=== PATIENT | female | born 1940 | race Two or more races ===

== ENCOUNTER → 2018-12-21 | Outpatient (CLI) | payer MEDICARE, MEDICAID ==
[~2018-12-21] MED LIST: LIDOCAINE 1% (LOCAL ANESTH.) PF 5ml SDV ID ONE
--- NOTE | 2018-12-21 13:59 | NUR ---
PICC line placement Out-patient and daughter educated on need for PICC line placement per Dr Mendez's written order. All risks and benefits explained and all questions and concerns addressed prior to procedure. Noted past medical history and allergies with no contraindications. INR and Plt counts within acceptable range. 4 fr PICC line inserted via right basilic vein using [employer] US and Tip Location System. Sterile technique with maximum barrier precautions utilized. Blood return obtained from single lumen and each flushed easily with NS using proper technique. PICC secured with Stat-lock; biodisc and occlusive dressing applied. Stat portable chest x-ray obtained for PICC tip placement. *Baseline Arm Circumference 32 cm. *Internal Length 40 cm. *External Length 0 cm. *PICC lot #[id number]. Note: Written orde for PICC Line placement faxed over by [facility] with Dr. Mendez's order attached to paperwork.
--- NOTE | 2018-12-21 14:45 | NUR ---
PICC Line in Appropriate Position per CXR. Patient and daughter notified. Pt. discharged with family member via W/C with zero s/s of distress.
== END | disposition home or self-care (01) ==
LOC: XYW 12:19
PROVIDERS: ATTEND Internal Medicine
DX: Z45.2 Encounter for adjustment and management of vascular access device (principal); Z88.8 Allergy status to other drugs, medicaments and biological substances; Z98.890 Other specified postprocedural states; J90 Pleural effusion, not elsewhere classified; J98.11 Atelectasis
CPT/HCPCS: 36569; 71045; C1751; J7050

== ENCOUNTER 2021-06-27 14:19 | Inpatient (IN) | payer OTHER, MEDICAID ==
[~2021-06-27] VITALS: Ht 149.9 cm; Wt 76.8 kg
[2021-06-27 15:24] LABS: Basophils # (auto) 0 10 ^3/uL (0-0.2); Basophils % (auto) 0.2 % (0.0-2.0); Eosinophils # (auto) 0 10 ^3/uL (0-0.8); Eosinophils % (auto) 0.2 % (0.0-7.0); Hematocrit 34.7 % (36.0-46.0); Hemoglobin 11.4 g/dL (12.2-16.2); Lymphocytes # (auto) 0.7 10 ^3/uL (0.4-5.4); Lymphocytes % (auto) 4.9 % (10.0-50.0); Mean Corpuscular Hemoglobin 32.9 pg (28.0-32.0); Mean Corpuscular Hgb Conc. 32.9 g/dL (32.0-36.0); Mean Corpuscular Volume 99.9 fL (80.0-100.0); Monocytes # (auto) 1.1 10 ^3/uL (0-1.3); Monocytes % (auto) 7.8 % (0.0-12.0); Neutrophils # (auto) 12.3 10 ^3/uL (1.6-8.6); Neutrophils % (auto) 86.9 % (37.0-80.0); Red Blood Cells 3.47 10^6/uL (4.0-5.20); Red Cell Distribution Width 14.4 % (11.8-14.3); White Blood Cell 14.1 10^3/uL (4.4-10.8)
[2021-06-27 15:35] LABS: Albumin 3.5 g/dL (3.4-5.0); Calcium 9.2 mg/dL (8.5-10.1)
[2021-06-27 15:41] LABS: BUN/Creatinine Ratio 7.3; Bilirubin, Total 0.4 mg/dL (0.2-1.0); Total Protein 7.7 g/dL (6.4-8.2)
[2021-06-27 16:23] LABS: Urine Bacteria FEW /hpf (None Seen); Urine Blood TRACE /uL (Negative); Urine WBC 2 /hpf (0 - 5)
[2021-06-27] MEDS ORDERED: HYDROcodone-ACET 5/325MG TAB PO PRN (18:45)
[2021-06-27] MEDS ORDERED: DOCUSATE SOD 100 MG CAP PO PRN (18:45)
[2021-06-27] MEDS ORDERED: ACETAMINOPHEN 325 MG TAB PO PRN (18:45)
[2021-06-27] MEDS ORDERED: NITROGLYCERIN 0.4 MG SL TAB SL PRN (18:45)
[2021-06-27] MEDS ORDERED: MORPHINE SULFATE 4 MG/ML SYR/VIAL IV PRN (18:45)
[2021-06-27] MEDS ORDERED: ONDANSETRON HCL 4 MG/2 ML VIAL IV PRN (18:45)
[2021-06-27] MEDS ORDERED: MORPHINE SULFATE INJECTION 2 MG/ML SYRG IV PRN ×2 (18:45→19:00)
[2021-06-27 21:45] VITALS: BP 113/41
[2021-06-27 22:00] VITALS: BP 113/41
[2021-06-27] MEDS: ASCORBIC ACID 500 MG TAB PO SCH (22:16)
[2021-06-27] MEDS: LACTULOSE 20Gm/30ML SOLN PO SCH (23:38)
[2021-06-28 00:14] VITALS: BP 113/41
[2021-06-28] MEDS ORDERED: LEVO100T8 PO (00:30)
[2021-06-28] MEDS ORDERED: HYDR-4298 PO (00:30)
[2021-06-28] MEDS ORDERED: ATOR20TA50 PO (00:30)
[2021-06-28] MEDS ORDERED: CHOL20002 PO (00:30)
[2021-06-28 05:00] VITALS: BP 144/57
[2021-06-28] MEDS: LACTULOSE 20Gm/30ML SOLN PO SCH ×4 (05:47→23:36)
[2021-06-28 05:48] LABS: Basophils # (auto) 0.1 10 ^3/uL (0-0.2); Basophils % (auto) 0.7 % (0.0-2.0); Eosinophils # (auto) 0.2 10 ^3/uL (0-0.8); Eosinophils % (auto) 2.2 % (0.0-7.0); Hematocrit 30.1 % (36.0-46.0); Hemoglobin 10.2 g/dL (12.2-16.2); Lymphocytes # (auto) 1.2 10 ^3/uL (0.4-5.4); Lymphocytes % (auto) 12.3 % (10.0-50.0); Mean Corpuscular Hemoglobin 33.9 pg (28.0-32.0); Mean Corpuscular Hgb Conc. 33.9 g/dL (32.0-36.0); Mean Corpuscular Volume 100.3 fL (80.0-100.0); Monocytes # (auto) 1.3 10 ^3/uL (0-1.3); Monocytes % (auto) 12.9 % (0.0-12.0); Neutrophils # (auto) 7.2 10 ^3/uL (1.6-8.6); Neutrophils % (auto) 71.9 % (37.0-80.0); Nucleated Red Blood Cells % 0.3 %; Red Cell Distribution Width 14.3 % (11.8-14.3)
[2021-06-28 06:04] LABS: Chloride 103 mmol/L (98-107); Sodium 137 mmol/L (136-145)
[2021-06-28 06:08] LABS: Alanine Aminotransferase 51 U/L (13-56); Anion Gap 11 (5-15); BUN/Creatinine Ratio 7.1; Blood Urea Nitrogen 48 mg/dL (7-18); Calcium 8.7 mg/dL (8.5-10.1); Carbon Dioxide 23 mmol/L (21-32); GFR African American 8 mL/min; GFR Non-African American 6 mL/min; Glucose 79 mg/dL (74-106)
[2021-06-28 06:17] LABS: Alkaline Phosphatase 131 U/L (45-117); Aspartate Aminotransferase 32 U/L (15-37); Bilirubin, Total 0.4 mg/dL (0.2-1.0); Total Protein 6.4 g/dL (6.4-8.2)
[2021-06-28] MEDS ORDERED: SODIUM ZIRCONIUM CYCL 10 GM PAK PO ONE (08:00)
[2021-06-28] MEDS: ASCORBIC ACID 500 MG TAB PO SCH ×2 (08:34→21:38)
[2021-06-28 08:46] VITALS: BP 108/97
[2021-06-28] MEDS ORDERED: ZINC SULFATE 220mg CAP or TAB PO SCH (10:00)
[2021-06-28] MEDS ORDERED: MULTIPLE VITAMIN TAB PO SCH (10:00)
[2021-06-28] MEDS ORDERED: FUROSEMIDE 100 MG/10ML VIAL IV ONE (13:30)
[2021-06-28 13:34] VITALS: BP 108/131
[2021-06-28] MEDS: SUCRALFATE 1 GM/10 ML ORAL SUSP PO SCH ×3 (14:00→21:38)
[2021-06-28] MEDS ORDERED: guaiFENesin-DM 100/10mg/5ml SYR PO PRN (14:45)
[2021-06-28] MEDS ORDERED: levoFLOXacin 500MG 100 ML IV ONE (14:45)
[2021-06-28] MEDS: PANTOPRAZOLE 40 MG TAB PO SCH ×2 (16:04→21:38)
[2021-06-28 16:10] VITALS: BP 108/131
[2021-06-28 16:13] LABS: Calcium 8.1 mg/dL (8.5-10.1); Potassium 5.1 mmol/L (3.5-5.1)
[2021-06-28 16:17] LABS: BUN/Creatinine Ratio 7.3
[2021-06-28 16:51] VITALS: BP 134/61
[2021-06-28] MEDS: SEVELAMER 800 MG TAB PO SCH (17:07)
[2021-06-28] MEDS ORDERED: SEVE800T PO (17:17)
[2021-06-28] MEDS ORDERED: PANT40T PO (17:17)
[2021-06-28] MEDS ORDERED: LACT10SO3 PO (17:17)
[2021-06-28] MEDS ORDERED: SUCR1SUS10 PO (17:17)
[2021-06-28] MEDS ORDERED: DEXT1SYP9 PO (17:17)
[2021-06-28] MEDS ORDERED: LEVO250T69 PO (17:18)
[2021-06-28] MEDS: ALBUTEROL SULF 2.5 MG/0.5ML(0.5%) NEB SOLN NEB SCH (18:00)
[2021-06-29 05:00] VITALS: BP 109/46
[2021-06-29 06:00] VITALS: BP 129/78
[2021-06-29] MEDS: LACTULOSE 20Gm/30ML SOLN PO SCH (06:00)
[2021-06-29] MEDS: SUCRALFATE 1 GM/10 ML ORAL SUSP PO SCH (06:34)
[2021-06-29] MEDS ORDERED: SODIUM CHL 0.9% 1000 ML BAG XX ONE (07:00)
[2021-06-29 07:02] LABS: Basophils # (auto) 0.1 10 ^3/uL (0-0.2); Basophils % (auto) 1.5 % (0.0-2.0); Eosinophils # (auto) 0.2 10 ^3/uL (0-0.8); Eosinophils % (auto) 2.3 % (0.0-7.0); Hematocrit 30.2 % (36.0-46.0); Hemoglobin 10.2 g/dL (12.2-16.2); Lymphocytes # (auto) 1.1 10 ^3/uL (0.4-5.4); Lymphocytes % (auto) 11.8 % (10.0-50.0); Mean Corpuscular Hgb Conc. 33.7 g/dL (32.0-36.0); Mean Corpuscular Volume 101.1 fL (80.0-100.0); Monocytes # (auto) 1.5 10 ^3/uL (0-1.3); Monocytes % (auto) 16.5 % (0.0-12.0); Neutrophils # (auto) 6.1 10 ^3/uL (1.6-8.6); Neutrophils % (auto) 67.9 % (37.0-80.0); Red Blood Cells 2.98 10^6/uL (4.0-5.20); Red Cell Distribution Width 14.7 % (11.8-14.3)
[2021-06-29 07:54] LABS: BUN/Creatinine Ratio 8.5; Potassium 5.2 mmol/L (3.5-5.1)
[2021-06-29 07:55] LABS: Albumin 2.7 g/dL (3.4-5.0); Bilirubin, Total 0.3 mg/dL (0.2-1.0)
[2021-06-29] MEDS: SEVELAMER 800 MG TAB PO SCH (08:00)
[2021-06-29] MEDS: ALBUTEROL SULF 2.5 MG/0.5ML(0.5%) NEB SOLN NEB SCH (08:44)
[2021-06-29 09:00] VITALS: BP 132/65
[2021-06-29] MEDS ORDERED: EPOETIN ALFA-EPBX 10,000 UNIT/1ML VIAL SC ONE (21:00)
== END 2021-06-29 13:30 | disposition home or self-care (01) | DRG 177 ==
LOC: ER 14:19 → TELE 18:46 → TELE-CENTR 21:26 → TELE-EAST 06-29 04:55
PROVIDERS: ADMIT Internal Medicine; ATTEND Internal Medicine
PROC: 5A1D70Z Performance of Urinary Filtration, Intermittent, Less than 6 Hours Per Day (ICD-10-PCS; principal; 2021-06-29)
DX: U07.1 COVID-19 (principal); N18.6 End stage renal disease; I13.2 Hypertensive heart and chronic kidney disease with heart failure and with stage 5 chronic kidney disease, or end stage renal disease; I50.22 Chronic systolic (congestive) heart failure; D63.1 Anemia in chronic kidney disease; E11.22 Type 2 diabetes mellitus with diabetic chronic kidney disease; K21.9 Gastro-esophageal reflux disease without esophagitis; D72.829 Elevated white blood cell count, unspecified; E87.5 Hyperkalemia; R09.02 Hypoxemia; Z96.659 Presence of unspecified artificial knee joint; K59.00 Constipation, unspecified; E03.9 Hypothyroidism, unspecified; E78.5 Hyperlipidemia, unspecified; J20.9 Acute bronchitis, unspecified; Z78.9 Other specified health status; Z99.2 Dependence on renal dialysis; Z88.8 Allergy status to other drugs, medicaments and biological substances; Z90.710 Acquired absence of both cervix and uterus
CPT/HCPCS: 36415; 71045; 74176; 80048; 80053; 81001; 83605; 83690; 83880; 84484; 85025; 85379; 87081; 87426; 94640; 96365; 96375; G0378; J1956; J2405

== ENCOUNTER 2021-07-27 13:25 | Emergency (ER) | payer OTHER, MEDICAID ==
[~2021-07-27] VITALS: Ht 147.3 cm; Wt 74.8 kg
[~2021-07-27 13:25] MED LIST changes: +ATOR20TA50 PO; +CHOL20002 PO; +DEXT1SYP9 PO; +HYDR-4298 PO; +LACT10SO3 PO; +LEVO100T8 PO; +LEVO250T69 PO; -LIDOCAINE 1% (LOCAL ANESTH.) PF 5ml SDV ID ONE; +PANT40T PO; +SEVE800T PO; +SUCR1SUS10 PO
[2021-07-27 16:58] VITALS: BP 169/61
[2021-07-27] MEDS ORDERED: DOXY-286 PO (18:18)
[2021-07-27] MEDS ORDERED: BENZ100C19 PO (18:18)
[2021-07-27] MEDS ORDERED: ALBU108A5 IN (18:18)
== END 2021-07-27 18:28 | disposition home or self-care (01) ==
LOC: ER 13:25
DX: J06.9 Acute upper respiratory infection, unspecified (principal); R51.9 Headache, unspecified; E11.22 Type 2 diabetes mellitus with diabetic chronic kidney disease; N18.6 End stage renal disease; Z90.710 Acquired absence of both cervix and uterus; Z20.822 Contact with and (suspected) exposure to COVID-19
CPT/HCPCS: 36415; 71045; 87426; 87804

== ENCOUNTER 2021-09-02 14:58 | Inpatient (IN) | payer OTHER, MEDICAID ==
[~2021-09-02] VITALS: Ht 147.3 cm; Wt 76.4 kg
[~2021-09-02 14:58] MED LIST changes: +ALBU108A5 IN; +BENZ100C19 PO; +DOXY-286 PO
[2021-09-02 17:15] LABS: Basophils # (auto) 0.1 10 ^3/uL (0-0.2); Basophils % (auto) 0.6 % (0.0-2.0); Eosinophils # (auto) 0.1 10 ^3/uL (0-0.8); Eosinophils % (auto) 0.7 % (0.0-7.0); Hematocrit 28.2 % (36.0-46.0); Hemoglobin 9.4 g/dL (12.2-16.2); Lymphocytes # (auto) 0.7 10 ^3/uL (0.4-5.4); Mean Corpuscular Hemoglobin 33.7 pg (28.0-32.0); Mean Corpuscular Hgb Conc. 33.3 g/dL (32.0-36.0); Mean Corpuscular Volume 101.1 fL (80.0-100.0); Monocytes # (auto) 0.8 10 ^3/uL (0-1.3); Monocytes % (auto) 5.5 % (0.0-12.0); Neutrophils % (auto) 88.2 % (37.0-80.0); Nucleated Red Blood Cells % 0.2 %; Red Blood Cells 2.79 10^6/uL (4.0-5.20); Red Cell Distribution Width 16.8 % (11.8-14.3); White Blood Cell 14.8 10^3/uL (4.4-10.8)
[2021-09-02 17:36] LABS: Albumin 3.1 g/dL (3.4-5.0); Calcium 8.5 mg/dL (8.5-10.1); Potassium 3.6 mmol/L (3.5-5.1)
[2021-09-02 17:43] LABS: BUN/Creatinine Ratio 5.6; Bilirubin, Total 0.3 mg/dL (0.2-1.0); Total Protein 6.5 g/dL (6.4-8.2)
[2021-09-02] MEDS ORDERED: DEXTROSE (50%) 50ML SYRG IV PRN (22:15)
[2021-09-02] MEDS ORDERED: ACETAMINOPHEN 325 MG TAB PO PRN (22:15)
[2021-09-02] MEDS ORDERED: DOCUSATE SOD 100 MG CAP PO PRN (22:15)
[2021-09-02] MEDS ORDERED: ONDANSETRON HCL 4 MG/2 ML VIAL IV PRN (22:15)
[2021-09-02] MEDS ORDERED: MORPHINE SULFATE INJECTION 2 MG/ML SYRG IV PRN (22:45)
[2021-09-02] MEDS ORDERED: NITROGLYCERIN 0.4 MG SL TAB SL PRN (22:45)
[2021-09-02] MEDS: AZITHROMYCIN 500MG/ 250ML 250 ML IV SCH (23:00)
[2021-09-03] MEDS: cefTRIAXone 1GM/50ML D5W 50 ML IV SCH ×2 (01:15→22:50)
[2021-09-03] MEDS: SODIUM CHLOR 0.9% PF (SALINE LOCK) 10ML VIAL/SYR IV SCH ×3 (06:59→22:19)
[2021-09-03] MEDS: InsuLIN REG 1unit/0.01ml Soln (100units/ml) SC SCH ×4 (07:00→22:59)
[2021-09-03] MEDS: ACCU-CHEK COMFORT CURVE STRIP VI SCH ×4 (07:10→22:19)
[2021-09-03] MEDS: SEVELAMER 800 MG TAB PO SCH ×3 (08:52→18:16)
[2021-09-03] MEDS: FAMOTIDINE (10MG/ML) 2ML VL IV SCH (08:52)
[2021-09-03] MEDS: B-COMPLEX W/ C & FOLIC ACID(NEPHROVITE TAB) PO SCH (08:52)
[2021-09-03 09:11] VITALS: BP 155/74
[2021-09-03] MEDS ORDERED: HEPARIN SODIUM (PORCINE) 5000 UNITS/ML 1ML VIAL SC SCH (10:00)
[2021-09-03 10:01] LABS: Potassium 3.7 mmol/L (3.5-5.1)
[2021-09-03 10:02] LABS: Albumin 3.7 g/dL (3.4-5.0)
[2021-09-03 10:05] LABS: BUN/Creatinine Ratio 5.1; Bilirubin, Total 0.4 mg/dL (0.2-1.0); Calcium 8.8 mg/dL (8.5-10.1); Total Protein 7.7 g/dL (6.4-8.2)
[2021-09-03 10:08] LABS: Basophils # (auto) 0.1 10 ^3/uL (0-0.2); Basophils % (auto) 0.9 % (0.0-2.0); Eosinophils # (auto) 0.1 10 ^3/uL (0-0.8); Eosinophils % (auto) 1.3 % (0.0-7.0); Hematocrit 31.1 % (36.0-46.0); Hemoglobin 10.4 g/dL (12.2-16.2); Lymphocytes % (auto) 8.7 % (10.0-50.0); Mean Corpuscular Hemoglobin 33.6 pg (28.0-32.0); Mean Corpuscular Hgb Conc. 33.5 g/dL (32.0-36.0); Mean Corpuscular Volume 100.5 fL (80.0-100.0); Monocytes # (auto) 0.9 10 ^3/uL (0-1.3); Monocytes % (auto) 7.9 % (0.0-12.0); Neutrophils # (auto) 9.1 10 ^3/uL (1.6-8.6); Neutrophils % (auto) 81.2 % (37.0-80.0); Nucleated Red Blood Cells % 0.1 %; Red Cell Distribution Width 16.5 % (11.8-14.3); White Blood Cell 11.2 10^3/uL (4.4-10.8)
[2021-09-03] MEDS: HYDROcodone-ACET 5/325MG TAB PO PRN (12:24)
[2021-09-03 14:39] VITALS: BP 158/50
[2021-09-03 17:49] VITALS: BP 141/55
[2021-09-03] MEDS: MUPIROCIN 2% OINT 15gm or 22gm EACHNOSTRI SCH ×2 (18:00→22:18)
[2021-09-03] MEDS ORDERED: LORazepam 2MG/ML-1ML VIAL IV PRN ×2 (19:15→21:15)
[2021-09-03 19:17] LABS: Urine Bacteria NONE SEEN /hpf (None Seen); Urine Blood Negative /uL (Negative); Urine Specific Gravity 1.006 (1.001-1.035); Urine WBC 1 /hpf (0 - 5)
[2021-09-03] MEDS ORDERED: RANO500T PO (20:58)
[2021-09-03] MEDS ORDERED: SODI650T PO (20:58)
[2021-09-03] MEDS ORDERED: APIX2.5T PO (20:58)
[2021-09-03] MEDS ORDERED: MULT-1018 PO (20:58)
[2021-09-03] MEDS ORDERED: CINA30TA2 PO (20:58)
[2021-09-03] MEDS ORDERED: INSLANTI SC (20:58)
[2021-09-03] MEDS ORDERED: ONDA-144 PO (20:58)
[2021-09-03] MEDS ORDERED: ACET1CAP14 PO (20:58)
[2021-09-03] MEDS ORDERED: METO-158 PO (20:58)
[2021-09-03] MEDS ORDERED: INSRTEST IV (20:58)
[2021-09-03 22:03] VITALS: BP 117/54
[2021-09-03] MEDS: ATORVASTATIN 20 MG TAB PO SCH (22:19)
[2021-09-03] MEDS: HEPARIN SODIUM (PORCINE) 5000 UNITS/ML 1ML VIAL SC SCH (23:07)
[2021-09-03] MEDS: AZITHROMYCIN 500MG/ 250ML 250 ML IV SCH (23:50)
[2021-09-04 05:18] VITALS: BP 108/68
[2021-09-04] MEDS: ACCU-CHEK COMFORT CURVE STRIP VI SCH ×4 (06:08→22:00)
[2021-09-04] MEDS: InsuLIN REG 1unit/0.01ml Soln (100units/ml) SC SCH ×4 (06:08→23:08)
[2021-09-04] MEDS: SODIUM CHLOR 0.9% PF (SALINE LOCK) 10ML VIAL/SYR IV SCH ×3 (06:08→22:40)
[2021-09-04 06:57] LABS: Calcium 7.4 mg/dL (8.5-10.1); Potassium 4.4 mmol/L (3.5-5.1)
[2021-09-04 07:00] LABS: BUN/Creatinine Ratio 6.9
[2021-09-04 08:20] VITALS: BP 134/61
[2021-09-04 08:40] LABS: Basophils # (auto) 0.1 10 ^3/uL (0-0.2); Basophils % (auto) 0.5 % (0.0-2.0); Hemoglobin 9.5 g/dL (12.2-16.2); Lymphocytes # (auto) 1.2 10 ^3/uL (0.4-5.4); Lymphocytes % (auto) 9.5 % (10.0-50.0); Monocytes # (auto) 1.2 10 ^3/uL (0-1.3); White Blood Cell 12.7 10^3/uL (4.4-10.8)
[2021-09-04 08:41] LABS: Eosinophils # (auto) 0.3 10 ^3/uL (0-0.8); Eosinophils % (auto) 2.1 % (0.0-7.0); Hematocrit 29.6 % (36.0-46.0); Mean Corpuscular Hemoglobin 32.7 pg (28.0-32.0); Mean Corpuscular Hgb Conc. 32.1 g/dL (32.0-36.0); Mean Corpuscular Volume 102.1 fL (80.0-100.0); Monocytes % (auto) 9.8 % (0.0-12.0); Neutrophils # (auto) 9.9 10 ^3/uL (1.6-8.6); Neutrophils % (auto) 78.1 % (37.0-80.0); Red Cell Distribution Width 16.6 % (11.8-14.3)
[2021-09-04] MEDS: ASPirin-EC 81 mg tab PO SCH (09:26)
[2021-09-04] MEDS: B-COMPLEX W/ C & FOLIC ACID(NEPHROVITE TAB) PO SCH (09:26)
[2021-09-04] MEDS: SEVELAMER 800 MG TAB PO SCH ×3 (09:26→17:47)
[2021-09-04] MEDS: MUPIROCIN 2% OINT 15gm or 22gm EACHNOSTRI SCH ×2 (09:27→22:40)
[2021-09-04] MEDS: FAMOTIDINE (10MG/ML) 2ML VL IV SCH (09:27)
[2021-09-04] MEDS: HEPARIN SODIUM (PORCINE) 5000 UNITS/ML 1ML VIAL SC SCH ×2 (09:31→22:42)
[2021-09-04 13:00] VITALS: BP 130/69
[2021-09-04] MEDS ORDERED: VANCOMYCIN 1GM/250ML 250 ML IV ONE (13:45)
[2021-09-04] MEDS ORDERED: VANCOMYCIN PER PHARMACY 0 MG IV SCH (13:45)
[2021-09-04] MEDS: PIPERACILLIN-TAZOB 2.25GM 50 ML IV SCH ×2 (15:59→23:10)
[2021-09-04 16:39] VITALS: BP 121/47
[2021-09-04 22:05] VITALS: BP 156/69
[2021-09-04] MEDS: ATORVASTATIN 20 MG TAB PO SCH (22:41)
[2021-09-05] MEDS: HYDROcodone-ACET 5/325MG TAB PO PRN ×2 (02:41→12:00)
[2021-09-05 05:26] VITALS: BP 108/59
[2021-09-05] MEDS: SODIUM CHLOR 0.9% PF (SALINE LOCK) 10ML VIAL/SYR IV SCH ×3 (05:38→22:32)
[2021-09-05] MEDS: InsuLIN REG 1unit/0.01ml Soln (100units/ml) SC SCH ×4 (07:00→22:34)
[2021-09-05] MEDS: PIPERACILLIN-TAZOB 2.25GM 50 ML IV SCH ×2 (07:04→13:39)
[2021-09-05] MEDS: ACCU-CHEK COMFORT CURVE STRIP VI SCH ×4 (07:04→22:00)
[2021-09-05 07:46] LABS: Eosinophils # (auto) 0.2 10 ^3/uL (0-0.8)
[2021-09-05 07:52] LABS: Basophils # (auto) 0 10 ^3/uL (0-0.2); Basophils % (auto) 0.3 % (0.0-2.0); Eosinophils % (auto) 2.2 % (0.0-7.0); Hematocrit 27.9 % (36.0-46.0); Hemoglobin 9.3 g/dL (12.2-16.2); Lymphocytes # (auto) 0.8 10 ^3/uL (0.4-5.4); Lymphocytes % (auto) 7.8 % (10.0-50.0); Mean Corpuscular Hemoglobin 33.6 pg (28.0-32.0); Mean Corpuscular Hgb Conc. 33.3 g/dL (32.0-36.0); Mean Corpuscular Volume 100.9 fL (80.0-100.0); Monocytes # (auto) 0.8 10 ^3/uL (0-1.3); Monocytes % (auto) 7.9 % (0.0-12.0); Neutrophils # (auto) 8.6 10 ^3/uL (1.6-8.6); Neutrophils % (auto) 81.8 % (37.0-80.0); Red Blood Cells 2.76 10^6/uL (4.0-5.20); Red Cell Distribution Width 16.5 % (11.8-14.3); White Blood Cell 10.5 10^3/uL (4.4-10.8)
[2021-09-05 08:11] LABS: Potassium 4.6 mmol/L (3.5-5.1)
[2021-09-05 08:32] LABS: BUN/Creatinine Ratio 7.5; Calcium 7.9 mg/dL (8.5-10.1)
[2021-09-05 09:00] VITALS: BP 122/62
[2021-09-05] MEDS: B-COMPLEX W/ C & FOLIC ACID(NEPHROVITE TAB) PO SCH (09:23)
[2021-09-05] MEDS: ASPirin-EC 81 mg tab PO SCH (09:23)
[2021-09-05] MEDS: SEVELAMER 800 MG TAB PO SCH ×3 (09:23→17:32)
[2021-09-05] MEDS: HEPARIN SODIUM (PORCINE) 5000 UNITS/ML 1ML VIAL SC SCH ×2 (09:28→22:32)
[2021-09-05] MEDS: MUPIROCIN 2% OINT 15gm or 22gm EACHNOSTRI SCH ×2 (09:31→22:30)
[2021-09-05 13:00] VITALS: BP_SYST 127; BP_SYST 170; BP_DIAS 57; BP_DIAS 77
[2021-09-05 17:00] VITALS: BP 133/39
[2021-09-05] MEDS ORDERED: VANCOMYCIN 1GM/250ML 250 ML IV ONE (18:00)
[2021-09-05 22:00] VITALS: BP 105/45
[2021-09-05] MEDS: ATORVASTATIN 20 MG TAB PO SCH (22:32)
[2021-09-06] MEDS: PIPERACILLIN-TAZOB 2.25GM 50 ML IV SCH ×2 (00:20→06:53)
[2021-09-06 05:00] VITALS: BP 112/62
[2021-09-06 06:03] LABS: Basophils # (auto) 0 10 ^3/uL (0-0.2); Eosinophils # (auto) 0.2 10 ^3/uL (0-0.8); Hemoglobin 9.4 g/dL (12.2-16.2); Lymphocytes # (auto) 0.6 10 ^3/uL (0.4-5.4); Neutrophils # (auto) 8.5 10 ^3/uL (1.6-8.6)
[2021-09-06 06:08] LABS: Basophils % (auto) 0.1 % (0.0-2.0); Eosinophils % (auto) 2.4 % (0.0-7.0); Lymphocytes % (auto) 5.7 % (10.0-50.0); Mean Corpuscular Hemoglobin 34.2 pg (28.0-32.0); Mean Corpuscular Hgb Conc. 33.6 g/dL (32.0-36.0); Mean Corpuscular Volume 101.8 fL (80.0-100.0); Monocytes # (auto) 1.1 10 ^3/uL (0-1.3); Monocytes % (auto) 10.6 % (0.0-12.0); Neutrophils % (auto) 81.2 % (37.0-80.0); Nucleated Red Blood Cells % 0.1 %; Red Blood Cells 2.75 10^6/uL (4.0-5.20); Red Cell Distribution Width 16.2 % (11.8-14.3); White Blood Cell 10.5 10^3/uL (4.4-10.8)
[2021-09-06 06:24] LABS: BUN/Creatinine Ratio 7.6; Potassium 5.4 mmol/L (3.5-5.1)
[2021-09-06] MEDS: ACCU-CHEK COMFORT CURVE STRIP VI SCH ×4 (06:52→21:39)
[2021-09-06] MEDS: SODIUM CHLOR 0.9% PF (SALINE LOCK) 10ML VIAL/SYR IV SCH ×3 (06:52→21:38)
[2021-09-06] MEDS: InsuLIN REG 1unit/0.01ml Soln (100units/ml) SC SCH ×4 (06:54→21:36)
[2021-09-06] MEDS: HYDROcodone-ACET 5/325MG TAB PO PRN (07:20)
[2021-09-06] MEDS: HALOPERIDOL LACTATE 5 MG/ML INJ VIAL IM PRN (07:22)
[2021-09-06 08:00] VITALS: BP 131/67
[2021-09-06] MEDS: SEVELAMER 800 MG TAB PO SCH ×3 (08:00→18:00)
[2021-09-06] MEDS: MUPIROCIN 2% OINT 15gm or 22gm EACHNOSTRI SCH ×2 (09:32→21:38)
[2021-09-06] MEDS: FAMOTIDINE (10MG/ML) 2ML VL IV SCH (09:33)
[2021-09-06] MEDS: HEPARIN SODIUM (PORCINE) 5000 UNITS/ML 1ML VIAL SC SCH ×2 (09:47→22:00)
[2021-09-06] MEDS: B-COMPLEX W/ C & FOLIC ACID(NEPHROVITE TAB) PO SCH (10:00)
[2021-09-06] MEDS: ASPirin-EC 81 mg tab PO SCH (10:00)
[2021-09-06] MEDS ORDERED: SODIUM CHL 0.9% 1000 ML BAG XX ONE (11:00)
[2021-09-06 12:00] VITALS: BP 135/66
[2021-09-06 16:00] VITALS: BP 132/78
[2021-09-06 21:00] VITALS: BP 134/82
[2021-09-06] MEDS ORDERED: EPOETIN ALFA-EPBX 10,000 UNIT/1ML VIAL SC ONE (21:00)
[2021-09-06] MEDS: ATORVASTATIN 20 MG TAB PO SCH (21:39)
[2021-09-06 22:00] VITALS: BP 151/64
[2021-09-06 23:20] LABS: INR 1.04 (0.9-1.15)
[2021-09-07] MEDS: HALOPERIDOL LACTATE 5 MG/ML INJ VIAL IM PRN ×2 (02:49→22:30)
[2021-09-07 05:00] VITALS: BP 151/64
[2021-09-07] MEDS: InsuLIN REG 1unit/0.01ml Soln (100units/ml) SC SCH ×4 (05:34→22:00)
[2021-09-07] MEDS: ACCU-CHEK COMFORT CURVE STRIP VI SCH ×4 (05:34→22:00)
[2021-09-07] MEDS: SODIUM CHLOR 0.9% PF (SALINE LOCK) 10ML VIAL/SYR IV SCH ×3 (05:34→22:00)
[2021-09-07] MEDS: SEVELAMER 800 MG TAB PO SCH ×3 (07:49→17:08)
[2021-09-07 08:30] VITALS: BP 119/55
[2021-09-07] MEDS: HEPARIN SODIUM (PORCINE) 5000 UNITS/ML 1ML VIAL SC SCH ×3 (10:00→22:00)
[2021-09-07] MEDS: MUPIROCIN 2% OINT 15gm or 22gm EACHNOSTRI SCH ×2 (10:22→22:00)
[2021-09-07] MEDS: ASPirin-EC 81 mg tab PO SCH (10:23)
[2021-09-07] MEDS: B-COMPLEX W/ C & FOLIC ACID(NEPHROVITE TAB) PO SCH (10:23)
[2021-09-07] MEDS: HYDROcodone-ACET 5/325MG TAB PO PRN ×2 (10:26→17:29)
[2021-09-07 13:00] VITALS: BP 143/71
[2021-09-07] MEDS ORDERED: LEVOTHYROXINE SODIUM 100 MCG/5 ML INJ IV ONE (16:30)
[2021-09-07 16:47] VITALS: BP 139/89
[2021-09-07] MEDS: AMPICILLIN SOD 2GM INJ 2 GM in SODIUM CHL 0.9% 100 ML IV SCH (17:10)
[2021-09-07] MEDS: METOPROLOL TARTRATE 25 MG TAB PO SCH ×3 (17:26→23:00)
[2021-09-07] MEDS: ACYCLOVIR SOD 50MG/ML 250 MG in D5W 5% 100 ML IV SCH (17:26)
[2021-09-07 19:49] LABS: Basophils # (auto) 0 10 ^3/uL (0-0.2); Basophils % (auto) 0.4 % (0.0-2.0); Eosinophils # (auto) 0.3 10 ^3/uL (0-0.8); Eosinophils % (auto) 3.9 % (0.0-7.0); Hematocrit 24.7 % (36.0-46.0); Hemoglobin 8.3 g/dL (12.2-16.2); Lymphocytes % (auto) 11.2 % (10.0-50.0); Mean Corpuscular Hemoglobin 33.8 pg (28.0-32.0); Mean Corpuscular Hgb Conc. 33.4 g/dL (32.0-36.0); Mean Corpuscular Volume 101.1 fL (80.0-100.0); Monocytes # (auto) 1.1 10 ^3/uL (0-1.3); Monocytes % (auto) 12.5 % (0.0-12.0); Neutrophils # (auto) 6.3 10 ^3/uL (1.6-8.6); Red Blood Cells 2.44 10^6/uL (4.0-5.20); Red Cell Distribution Width 16.1 % (11.8-14.3); White Blood Cell 8.8 10^3/uL (4.4-10.8)
[2021-09-07 20:00] VITALS: BP 152/79
[2021-09-07 20:04] LABS: BUN/Creatinine Ratio 4.7; Calcium 8.2 mg/dL (8.5-10.1); Potassium 4.6 mmol/L (3.5-5.1)
[2021-09-07 20:50] VITALS: BP 152/79
[2021-09-07] MEDS: CEFTRIAXONE SODIUM 2 GM in D5W 5% 50 ML IV SCH (21:00)
[2021-09-07] MEDS ORDERED: cefTRIAXone 1GM/50ML D5W 50 ML IV ONE (21:34)
[2021-09-07] MEDS: ATORVASTATIN 20 MG TAB PO SCH (22:00)
[2021-09-08] VITALS: BP 133/62
[2021-09-08] MEDS ORDERED: AMPICILLIN SOD 1 GM VL ONE (02:31)
[2021-09-08] MEDS: AMPICILLIN SOD 2GM INJ 2 GM in SODIUM CHL 0.9% 100 ML IV SCH ×4 (02:46→18:22)
[2021-09-08 05:01] VITALS: BP 132/72
[2021-09-08] MEDS: SODIUM CHLOR 0.9% PF (SALINE LOCK) 10ML VIAL/SYR IV SCH ×3 (06:10→22:00)
[2021-09-08] MEDS ORDERED: SODIUM CHL 0.9% 1000 ML BAG XX ONE (06:45)
[2021-09-08] MEDS: LEVOTHYROXINE SODIUM 112 MCG TAB PO SCH (07:00)
[2021-09-08] MEDS: InsuLIN REG 1unit/0.01ml Soln (100units/ml) SC SCH ×4 (07:00→22:00)
[2021-09-08] MEDS: ACCU-CHEK COMFORT CURVE STRIP VI SCH ×4 (07:00→22:00)
[2021-09-08 07:23] LABS: Basophils # (auto) 0.1 10 ^3/uL (0-0.2); Basophils % (auto) 0.6 % (0.0-2.0); Eosinophils # (auto) 0.3 10 ^3/uL (0-0.8); Eosinophils % (auto) 3.7 % (0.0-7.0); Hematocrit 28.3 % (36.0-46.0); Hemoglobin 9.4 g/dL (12.2-16.2); Lymphocytes # (auto) 1.1 10 ^3/uL (0.4-5.4); Lymphocytes % (auto) 11.8 % (10.0-50.0); Mean Corpuscular Hemoglobin 33.3 pg (28.0-32.0); Mean Corpuscular Hgb Conc. 33.2 g/dL (32.0-36.0); Mean Corpuscular Volume 100.4 fL (80.0-100.0); Monocytes # (auto) 1.1 10 ^3/uL (0-1.3); Monocytes % (auto) 12.3 % (0.0-12.0); Neutrophils # (auto) 6.6 10 ^3/uL (1.6-8.6); Neutrophils % (auto) 71.6 % (37.0-80.0); Nucleated Red Blood Cells % 0.1 %; Red Blood Cells 2.82 10^6/uL (4.0-5.20); Red Cell Distribution Width 16.1 % (11.8-14.3); White Blood Cell 9.3 10^3/uL (4.4-10.8)
[2021-09-08] MEDS: SEVELAMER 800 MG TAB PO SCH ×3 (08:16→18:22)
[2021-09-08 09:00] VITALS: BP 116/59
[2021-09-08] MEDS: HEPARIN SODIUM (PORCINE) 5000 UNITS/ML 1ML VIAL SC SCH ×2 (10:00→22:00)
[2021-09-08] MEDS ORDERED: LIDOCAINE 2%HCL (LOCAL ANESTH.) INJ 20ML MDV ONE (10:38)
[2021-09-08] MEDS: MUPIROCIN 2% OINT 15gm or 22gm EACHNOSTRI SCH ×2 (10:38→22:00)
[2021-09-08] MEDS: B-COMPLEX W/ C & FOLIC ACID(NEPHROVITE TAB) PO SCH (10:39)
[2021-09-08] MEDS: ASPirin-EC 81 mg tab PO SCH (10:39)
[2021-09-08] MEDS: FAMOTIDINE (10MG/ML) 2ML VL IV SCH (10:39)
[2021-09-08] MEDS: CINACALCET HYDROCHLORIDE 30 MG TAB PO SCH (12:08)
[2021-09-08] MEDS: CEFTRIAXONE SODIUM 2 GM in D5W 5% 50 ML IV SCH ×2 (12:08→21:00)
[2021-09-08 12:43] VITALS: BP 167/75
[2021-09-08 13:23] LABS: Protein, CSF 84.1 mg/dL (15-45)
[2021-09-08 14:36] LABS: CSF White Blood Cells 20 CUMM (0-5)
[2021-09-08 15:44] LABS: BUN/Creatinine Ratio 4.5; Calcium 8.1 mg/dL (8.5-10.1)
[2021-09-08 16:49] VITALS: BP 139/89
[2021-09-08] MEDS: HYDROcodone-ACET 5/325MG TAB PO PRN (16:50)
[2021-09-08] MEDS ORDERED: VANCOMYCIN 1GM/250ML 250 ML IV ONE (17:00)
[2021-09-08] MEDS: ACYCLOVIR SOD 50MG/ML 250 MG in D5W 5% 100 ML IV SCH (20:00)
[2021-09-08 22:00] VITALS: BP 151/86
[2021-09-08] MEDS: METOPROLOL TARTRATE 25 MG TAB PO SCH (22:00)
[2021-09-08] MEDS: ATORVASTATIN 20 MG TAB PO SCH (22:00)
[2021-09-09] MEDS: AMPICILLIN SOD 2GM INJ 2 GM in SODIUM CHL 0.9% 100 ML IV SCH ×3 (00:23→12:00)
[2021-09-09] MEDS: HYDROcodone-ACET 5/325MG TAB PO PRN ×3 (01:12→07:33)
[2021-09-09 05:00] VITALS: BP 143/68
[2021-09-09] MEDS: SODIUM CHLOR 0.9% PF (SALINE LOCK) 10ML VIAL/SYR IV SCH ×2 (06:00→14:00)
[2021-09-09] MEDS: InsuLIN REG 1unit/0.01ml Soln (100units/ml) SC SCH ×3 (07:00→17:00)
[2021-09-09] MEDS: ACCU-CHEK COMFORT CURVE STRIP VI SCH ×3 (07:00→17:00)
[2021-09-09] MEDS: LEVOTHYROXINE SODIUM 112 MCG TAB PO SCH (07:00)
[2021-09-09 07:22] LABS: BUN/Creatinine Ratio 4.1; Calcium 8.2 mg/dL (8.5-10.1); Potassium 4.7 mmol/L (3.5-5.1)
[2021-09-09 07:34] LABS: Basophils # (auto) 0.1 10 ^3/uL (0-0.2); Basophils % (auto) 0.7 % (0.0-2.0); Eosinophils # (auto) 0.3 10 ^3/uL (0-0.8); Eosinophils % (auto) 2.6 % (0.0-7.0); Hemoglobin 9.5 g/dL (12.2-16.2); Mean Corpuscular Hemoglobin 33.9 pg (28.0-32.0); Mean Corpuscular Hgb Conc. 33.7 g/dL (32.0-36.0); Mean Corpuscular Volume 100.4 fL (80.0-100.0); Monocytes # (auto) 0.9 10 ^3/uL (0-1.3); Monocytes % (auto) 9.3 % (0.0-12.0); Neutrophils # (auto) 7.6 10 ^3/uL (1.6-8.6); Neutrophils % (auto) 77.4 % (37.0-80.0); Red Blood Cells 2.79 10^6/uL (4.0-5.20); Red Cell Distribution Width 15.8 % (11.8-14.3); White Blood Cell 9.8 10^3/uL (4.4-10.8)
[2021-09-09] MEDS: SEVELAMER 800 MG TAB PO SCH ×2 (08:00→12:00)
[2021-09-09 08:24] VITALS: BP 156/65
[2021-09-09] MEDS: CEFTRIAXONE SODIUM 2 GM in D5W 5% 50 ML IV SCH (09:00)
[2021-09-09] MEDS: B-COMPLEX W/ C & FOLIC ACID(NEPHROVITE TAB) PO SCH (10:00)
[2021-09-09] MEDS: ASPirin-EC 81 mg tab PO SCH (10:00)
[2021-09-09] MEDS: METOPROLOL TARTRATE 25 MG TAB PO SCH (10:00)
[2021-09-09] MEDS: MUPIROCIN 2% OINT 15gm or 22gm EACHNOSTRI SCH (10:00)
[2021-09-09] MEDS: HEPARIN SODIUM (PORCINE) 5000 UNITS/ML 1ML VIAL SC SCH (10:00)
[2021-09-09] MEDS: CINACALCET HYDROCHLORIDE 30 MG TAB PO SCH (10:00)
[2021-09-09] MEDS ORDERED: HALOPERIDOL LACTATE 5 MG/ML INJ VIAL IM PRN (10:15)
[2021-09-09] MEDS ORDERED: SODIUM CHL 0.9% 1000 ML BAG XX ONE (12:15)
[2021-09-09 13:00] VITALS: BP 140/49
[2021-09-09] MEDS ORDERED: MET25T PO (14:03)
[2021-09-09] MEDS ORDERED: KEP500T PO (14:03)
[2021-09-09 15:56] VITALS: BP 140/49
[2021-09-09] MEDS ORDERED: EPOETIN ALFA-EPBX 10,000 UNIT/1ML VIAL SC ONE (21:00)
== END 2021-09-09 18:02 | disposition home health service (06) | DRG 871 ==
LOC: EDBD 14:58 → ER 14:58 → TELE 22:43 → TELE-WESTW 09-03 05:52
PROVIDERS: ADMIT Nurse Practitioner Family; ATTEND Internal Medicine
PROC: 5A1D70Z Performance of Urinary Filtration, Intermittent, Less than 6 Hours Per Day (ICD-10-PCS; 2021-09-06)
PROC: 5A1D70Z Performance of Urinary Filtration, Intermittent, Less than 6 Hours Per Day (ICD-10-PCS; principal; 2021-09-08)
PROC: 009U3ZX Drainage of Spinal Canal, Percutaneous Approach, Diagnostic (ICD-10-PCS; 2021-09-08)
PROC: B01B1ZZ Fluoroscopy of Spinal Cord using Low Osmolar Contrast (ICD-10-PCS; 2021-09-08)
PROC: 5A1D70Z Performance of Urinary Filtration, Intermittent, Less than 6 Hours Per Day (ICD-10-PCS; 2021-09-09)
DX: A41.9 Sepsis, unspecified organism (principal); J18.9 Pneumonia, unspecified organism; N18.6 End stage renal disease; G93.41 Metabolic encephalopathy; I13.2 Hypertensive heart and chronic kidney disease with heart failure and with stage 5 chronic kidney disease, or end stage renal disease; J98.11 Atelectasis; D63.8 Anemia in other chronic diseases classified elsewhere; E11.65 Type 2 diabetes mellitus with hyperglycemia; E03.9 Hypothyroidism, unspecified; E11.22 Type 2 diabetes mellitus with diabetic chronic kidney disease; E66.01 Morbid (severe) obesity due to excess calories; E78.5 Hyperlipidemia, unspecified; G40.409 Other generalized epilepsy and epileptic syndromes, not intractable, without status epilepticus; G47.33 Obstructive sleep apnea (adult) (pediatric); Z20.822 Contact with and (suspected) exposure to COVID-19; I48.91 Unspecified atrial fibrillation; I50.9 Heart failure, unspecified; J43.9 Emphysema, unspecified; R29.810 Facial weakness; F03.90 Unspecified dementia, unspecified severity, without behavioral disturbance, psychotic disturbance, mood disturbance, and anxiety; Z79.82 Long term (current) use of aspirin; Z68.35 Body mass index [BMI] 35.0-35.9, adult; Z79.899 Other long term (current) drug therapy; Z82.0 Family history of epilepsy and other diseases of the nervous system; Z82.49 Family history of ischemic heart disease and other diseases of the circulatory system; Z83.3 Family history of diabetes mellitus; Z86.73 Personal history of transient ischemic attack (TIA), and cerebral infarction without residual deficits; Z90.710 Acquired absence of both cervix and uterus; Z99.2 Dependence on renal dialysis; Z88.8 Allergy status to other drugs, medicaments and biological substances; A49.02 Methicillin resistant Staphylococcus aureus infection, unspecified site
CPT/HCPCS: 36415; 62272; 70450; 70551; 71045; 80048; 80053; 80061; 80202; 81001; 82140; 82945; 82962; 84157; 84443; 84484; 85025; 85610; 85730; 87040; 87070; 87077; 87081; 87086; 87205; 87426; 87529; 89051; 90935; 93005; 93306; 93886; 95819; 96374; 97110; 97116; 97163; 97530; G0378; J0696; J1815; J2405; J2543; J3490; J7060

== ENCOUNTER 2022-10-18 16:36 | Inpatient (IN) | payer OTHER, MEDICAID ==
[~2022-10-18] VITALS: Ht 147.3 cm; Wt 60.1 kg
[~2022-10-18 16:36] MED LIST changes: +ACET1CAP14 PO; +APIX2.5T PO; +CINA30TA2 PO; -DEXT1SYP9 PO; -DOXY-286 PO; -HYDR-4298 PO; +INSRTEST IV; +KEP500T PO; -LEVO250T69 PO; +MET25T PO; +MULT-1018 PO; +ONDA-144 PO; +RANO500T PO; +SODI650T PO; -SUCR1SUS10 PO
[2022-10-18] MEDS ORDERED: methylPREDNISolone SOD SUCC 125 MG/2 ML VL IV ONE (17:30)
[2022-10-18] MEDS ORDERED: IPRATROPIUM BROM 0.5 MG/2.5ML INH SOL NEB ONE (17:30)
[2022-10-18] MEDS ORDERED: ALBUTEROL SULF 2.5 MG/0.5ML(0.5%) NEB SOLN NEB ONE (17:30)
[2022-10-18 18:04] LABS: Basophils # (auto) 0.1 10 ^3/uL (0-0.2); Basophils % (auto) 0.7 % (0.0-2.0); Eosinophils # (auto) 0.3 10 ^3/uL (0-0.8); Eosinophils % (auto) 2.6 % (0.0-7.0); Hematocrit 34.6 % (36.0-46.0); Hemoglobin 11.1 g/dL (12.2-16.2); Lymphocytes # (auto) 1.3 10 ^3/uL (0.4-5.4); Lymphocytes % (auto) 10.9 % (10.0-50.0); Mean Corpuscular Hemoglobin 30.9 pg (28.0-32.0); Mean Corpuscular Hgb Conc. 32.1 g/dL (32.0-36.0); Mean Corpuscular Volume 96.5 fL (80.0-100.0); Monocytes # (auto) 1.3 10 ^3/uL (0-1.3); Monocytes % (auto) 10.9 % (0.0-12.0); Neutrophils % (auto) 74.9 % (37.0-80.0); Red Blood Cells 3.59 10^6/uL (4.0-5.20); Red Cell Distribution Width 18.2 % (11.8-14.3)
[2022-10-18 18:06] LABS: Albumin 3.2 g/dL (3.4-5.0); BUN/Creatinine Ratio 8.2 (10.0-20.0); Potassium 4.4 mmol/L (3.5-5.1)
[2022-10-18 18:08] LABS: Bilirubin, Total 0.3 mg/dL (0.2-1.0)
[2022-10-18] MEDS ORDERED: MORPHINE SULFATE INJ 2 MG/ml SYRG IV PRN (20:45)
[2022-10-18] MEDS ORDERED: ONDANSETRON HCL 4 MG/2 ML VIAL IV PRN (20:45)
[2022-10-18] MEDS ORDERED: NITROGLYCERIN 0.4 MG SL TAB SL PRN (20:45)
[2022-10-18] MEDS ORDERED: DOCUSATE SOD 100 MG CAP PO PRN (20:45)
[2022-10-18 20:51] VITALS: BP 155/69
[2022-10-18] MEDS ORDERED: BUME1TAB3 PO (20:57)
[2022-10-18] MEDS ORDERED: LORA-340 PO (20:57)
[2022-10-18] MEDS ORDERED: DIVA500T13 PO (20:57)
[2022-10-18] MEDS: RANOLAZINE ER 500 MG TAB PO SCH (21:45)
[2022-10-18] MEDS: METOPROLOL TARTRATE 25 MG TAB PO SCH (21:45)
[2022-10-18] MEDS: SODIUM CHLOR 0.9% PF (SALINE LOCK) 10ML VIAL/SYR IV SCH (21:46)
[2022-10-18] MEDS: methylPREDNISolone SOD SUCC 40 MG/ML VL IV SCH (21:46)
[2022-10-18] MEDS: APIXABAN 2.5 MG TAB PO SCH (21:46)
[2022-10-18] MEDS: ALBUTEROL SULF 2.5 MG/0.5ML(0.5%) NEB SOLN NEB PRN (22:19)
[2022-10-18] MEDS: ACETAMINOPHEN 325 MG TAB PO PRN (23:41)
[2022-10-19] MEDS: IPRATROPIUM BROM 0.5 MG/2.5ML INH SOL NEB PRN ×2 (04:44→19:54)
[2022-10-19] MEDS: ALBUTEROL SULF 2.5 MG/0.5ML(0.5%) NEB SOLN NEB PRN ×2 (04:44→19:54)
[2022-10-19] MEDS: guaiFENesin-DM 100/10mg/5ml SYR PO PRN ×4 (04:56→22:24)
[2022-10-19] MEDS: SODIUM CHLOR 0.9% PF (SALINE LOCK) 10ML VIAL/SYR IV SCH ×3 (05:45→21:52)
[2022-10-19 05:47] LABS: Basophils # (auto) 0.1 10 ^3/uL (0-0.2); Basophils % (auto) 0.8 % (0.0-2.0); Eosinophils # (auto) 0 10 ^3/uL (0-0.8); Hematocrit 36.5 % (36.0-46.0); Hemoglobin 11.8 g/dL (12.2-16.2); Lymphocytes # (auto) 0.8 10 ^3/uL (0.4-5.4); Lymphocytes % (auto) 6.8 % (10.0-50.0); Mean Corpuscular Hgb Conc. 32.4 g/dL (32.0-36.0); Mean Corpuscular Volume 98.7 fL (80.0-100.0); Monocytes # (auto) 0.1 10 ^3/uL (0-1.3); Monocytes % (auto) 1.2 % (0.0-12.0); Neutrophils # (auto) 11.2 10 ^3/uL (1.6-8.6); Neutrophils % (auto) 91.2 % (37.0-80.0); Red Cell Distribution Width 18.1 % (11.8-14.3); White Blood Cell 12.3 10^3/uL (4.4-10.8)
[2022-10-19 06:16] LABS: Albumin 3.2 g/dL (3.4-5.0); Calcium 8.4 mg/dL (8.5-10.1); Potassium 5.1 mmol/L (3.5-5.1)
[2022-10-19 06:21] LABS: BUN/Creatinine Ratio 8.3 (10.0-20.0); Bilirubin, Total 0.5 mg/dL (0.2-1.0); Total Protein 8.1 g/dL (6.4-8.2)
[2022-10-19] MEDS: LEVOTHYROXINE SODIUM 100 MCG TAB PO SCH (06:32)
[2022-10-19] MEDS: SEVELAMER 800 MG TAB PO SCH ×3 (09:09→18:25)
[2022-10-19] MEDS: APIXABAN 2.5 MG TAB PO SCH ×2 (09:33→22:22)
[2022-10-19] MEDS: PANTOPRAZOLE 40 MG/10 ML VIAL INJ IV SCH (09:33)
[2022-10-19] MEDS: methylPREDNISolone SOD SUCC 40 MG/ML VL IV SCH ×2 (09:33→22:21)
[2022-10-19] MEDS: METOPROLOL TARTRATE 25 MG TAB PO SCH ×2 (09:38→22:22)
[2022-10-19] MEDS ORDERED: ATORVASTATIN 20 MG TAB PO SCH (10:00)
[2022-10-19] MEDS: RANOLAZINE ER 500 MG TAB PO SCH ×2 (10:52→22:23)
[2022-10-19] MEDS: ACETAMINOPHEN 325 MG TAB PO PRN (10:56)
[2022-10-19 16:30] VITALS: BP 181/80
[2022-10-19 17:28] VITALS: BP 181/80
[2022-10-19] MEDS ORDERED: DEXTROSE (50%) 50ML SYRG IV PRN (21:45)
[2022-10-19 22:00] VITALS: BP 182/89
[2022-10-19] MEDS: hydrALAZINE HCL 10 MG TAB PO PRN (22:23)
[2022-10-19] MEDS: ACCU-CHEK COMFORT CURVE STRIP VI SCH (22:37)
[2022-10-19] MEDS: InsuLIN REG 1unit/0.01ml Soln (100units/ml) SC SCH (22:39)
[2022-10-20] MEDS: ALBUTEROL SULF 2.5 MG/0.5ML(0.5%) NEB SOLN NEB PRN ×3 (01:49→14:43)
[2022-10-20] MEDS: IPRATROPIUM BROM 0.5 MG/2.5ML INH SOL NEB PRN ×3 (01:49→14:43)
[2022-10-20] MEDS: guaiFENesin-DM 100/10mg/5ml SYR PO PRN (02:23)
[2022-10-20 05:00] VITALS: BP 149/57
[2022-10-20] MEDS: ACCU-CHEK COMFORT CURVE STRIP VI SCH ×4 (06:11→21:48)
[2022-10-20] MEDS: SODIUM CHLOR 0.9% PF (SALINE LOCK) 10ML VIAL/SYR IV SCH ×3 (06:11→21:47)
[2022-10-20] MEDS: InsuLIN REG 1unit/0.01ml Soln (100units/ml) SC SCH ×4 (06:19→21:56)
[2022-10-20] MEDS: LEVOTHYROXINE SODIUM 100 MCG TAB PO SCH (06:20)
[2022-10-20] MEDS: SEVELAMER 800 MG TAB PO SCH ×3 (08:29→18:27)
[2022-10-20 08:30] VITALS: BP 146/78
[2022-10-20] MEDS: methylPREDNISolone SOD SUCC 40 MG/ML VL IV SCH ×2 (10:19→21:47)
[2022-10-20] MEDS: PANTOPRAZOLE 40 MG/10 ML VIAL INJ IV SCH (10:19)
[2022-10-20] MEDS: RANOLAZINE ER 500 MG TAB PO SCH ×2 (10:20→21:48)
[2022-10-20] MEDS: APIXABAN 2.5 MG TAB PO SCH ×2 (10:20→21:48)
[2022-10-20] MEDS: METOPROLOL TARTRATE 25 MG TAB PO SCH ×2 (10:21→21:48)
[2022-10-20] MEDS: ATORVASTATIN 20 MG TAB PO SCH (10:22)
[2022-10-20 16:56] VITALS: BP 156/84
[2022-10-20] MEDS: cefTRIAXone 1GM/50ML D5W 50 ML IV SCH (17:15)
[2022-10-20] MEDS: IPRATROPIUM BROM 0.5 MG/2.5ML INH SOL NEB SCH ×2 (18:06→22:08)
[2022-10-20] MEDS: ALBUTEROL SULF 2.5 MG/0.5ML(0.5%) NEB SOLN NEB SCH ×2 (18:06→22:08)
[2022-10-20] MEDS: AZITHROMYCIN 500MG/ 250ML 250 ML IV SCH (18:28)
[2022-10-20 20:00] VITALS: BP 148/68
[2022-10-20] MEDS: MUPIROCIN 2% OINT 15gm or 22gm FOR MRSA NARES EACHNOSTRI SCH (21:46)
[2022-10-20 22:00] VITALS: BP 154/67
[2022-10-21] VITALS (8 sets, daily range): BP systolic 108–169; BP diastolic 63–85
[2022-10-21] MEDS: methylPREDNISolone SOD SUCC 40 MG/ML VL IV SCH ×3 (06:00→22:46)
[2022-10-21] MEDS: SODIUM CHLOR 0.9% PF (SALINE LOCK) 10ML VIAL/SYR IV SCH ×3 (06:00→22:00)
[2022-10-21] MEDS: guaiFENesin-DM 100/10mg/5ml SYR PO PRN ×3 (06:05→20:47)
[2022-10-21] MEDS: ALBUTEROL SULF 2.5 MG/0.5ML(0.5%) NEB SOLN NEB SCH ×5 (06:07→22:39)
[2022-10-21] MEDS: IPRATROPIUM BROM 0.5 MG/2.5ML INH SOL NEB SCH ×5 (06:07→22:39)
[2022-10-21] MEDS: ACCU-CHEK COMFORT CURVE STRIP VI SCH ×4 (06:25→22:00)
[2022-10-21] MEDS: LEVOTHYROXINE SODIUM 100 MCG TAB PO SCH (06:25)
[2022-10-21] MEDS: InsuLIN REG 1unit/0.01ml Soln (100units/ml) SC SCH ×4 (06:27→22:50)
[2022-10-21 07:00] LABS: Hematocrit 31.5 % (36.0-46.0); Hemoglobin 10.3 g/dL (12.2-16.2)
[2022-10-21] MEDS: SEVELAMER 800 MG TAB PO SCH ×3 (08:42→18:46)
[2022-10-21] MEDS: cefTRIAXone 1GM/50ML D5W 50 ML IV SCH (08:42)
[2022-10-21] MEDS: PANTOPRAZOLE 40 MG/10 ML VIAL INJ IV SCH (10:31)
[2022-10-21] MEDS: APIXABAN 2.5 MG TAB PO SCH ×2 (10:32→22:46)
[2022-10-21] MEDS: ATORVASTATIN 20 MG TAB PO SCH (10:32)
[2022-10-21] MEDS: METOPROLOL TARTRATE 25 MG TAB PO SCH ×2 (10:32→22:48)
[2022-10-21] MEDS: AZITHROMYCIN 500MG/ 250ML 250 ML IV SCH (10:32)
[2022-10-21] MEDS: RANOLAZINE ER 500 MG TAB PO SCH ×2 (10:39→22:47)
[2022-10-21] MEDS: MUPIROCIN 2% OINT 15gm or 22gm FOR MRSA NARES EACHNOSTRI SCH ×2 (10:41→22:51)
[2022-10-21] MEDS ORDERED: EPOETIN ALFA-EPBX 4,000 UNIT/ML VIAL SC ONE (21:00)
[2022-10-22] MEDS: guaiFENesin-DM 100/10mg/5ml SYR PO PRN ×4 (00:35→23:49)
[2022-10-22 05:00] VITALS: BP 166/75
[2022-10-22] MEDS: hydrALAZINE HCL 10 MG TAB PO PRN ×2 (05:15→17:35)
[2022-10-22] MEDS: methylPREDNISolone SOD SUCC 40 MG/ML VL IV SCH ×3 (05:16→22:22)
[2022-10-22] MEDS: SODIUM CHLOR 0.9% PF (SALINE LOCK) 10ML VIAL/SYR IV SCH ×3 (05:16→22:22)
[2022-10-22] MEDS: LEVOTHYROXINE SODIUM 100 MCG TAB PO SCH (06:20)
[2022-10-22] MEDS: InsuLIN REG 1unit/0.01ml Soln (100units/ml) SC SCH ×4 (06:21→22:23)
[2022-10-22] MEDS: ACCU-CHEK COMFORT CURVE STRIP VI SCH ×4 (06:22→22:23)
[2022-10-22] MEDS: IPRATROPIUM BROM 0.5 MG/2.5ML INH SOL NEB SCH ×5 (06:34→22:23)
[2022-10-22] MEDS: ALBUTEROL SULF 2.5 MG/0.5ML(0.5%) NEB SOLN NEB SCH ×5 (06:34→22:23)
[2022-10-22 08:44] VITALS: BP 103/35
[2022-10-22] MEDS: cefTRIAXone 1GM/50ML D5W 50 ML IV SCH (09:38)
[2022-10-22] MEDS: SEVELAMER 800 MG TAB PO SCH ×3 (09:38→17:33)
[2022-10-22] MEDS: APIXABAN 2.5 MG TAB PO SCH ×2 (09:39→22:18)
[2022-10-22] MEDS: MUPIROCIN 2% OINT 15gm or 22gm FOR MRSA NARES EACHNOSTRI SCH ×2 (09:39→22:21)
[2022-10-22] MEDS: PANTOPRAZOLE 40 MG/10 ML VIAL INJ IV SCH (09:39)
[2022-10-22] MEDS: ATORVASTATIN 20 MG TAB PO SCH (09:39)
[2022-10-22] MEDS: RANOLAZINE ER 500 MG TAB PO SCH ×2 (09:40→22:17)
[2022-10-22] MEDS: METOPROLOL TARTRATE 25 MG TAB PO SCH ×3 (09:40→22:21)
[2022-10-22] MEDS: AZITHROMYCIN 500MG/ 250ML 250 ML IV SCH (11:47)
[2022-10-22 12:15] VITALS: BP 151/67
[2022-10-22 14:00] LABS: Potassium 4.6 mmol/L (3.5-5.1)
[2022-10-22 14:01] LABS: Basophils # (auto) 0.1 10 ^3/uL (0-0.2); Basophils % (auto) 0.3 % (0.0-2.0); Calcium 8.3 mg/dL (8.5-10.1); Eosinophils # (auto) 0 10 ^3/uL (0-0.8); Eosinophils % (auto) 0.1 % (0.0-7.0); Hematocrit 35.6 % (36.0-46.0); Hemoglobin 11.6 g/dL (12.2-16.2); Lymphocytes # (auto) 0.6 10 ^3/uL (0.4-5.4); Lymphocytes % (auto) 3.1 % (10.0-50.0); Mean Corpuscular Hemoglobin 31.1 pg (28.0-32.0); Mean Corpuscular Hgb Conc. 32.5 g/dL (32.0-36.0); Mean Corpuscular Volume 95.6 fL (80.0-100.0); Monocytes # (auto) 1.3 10 ^3/uL (0-1.3); Monocytes % (auto) 6.5 % (0.0-12.0); Neutrophils # (auto) 17.4 10 ^3/uL (1.6-8.6); Red Blood Cells 3.72 10^6/uL (4.0-5.20); Red Cell Distribution Width 17.8 % (11.8-14.3); White Blood Cell 19.3 10^3/uL (4.4-10.8)
[2022-10-22 16:00] VITALS: BP 169/70
[2022-10-22 20:00] VITALS: BP 148/68
[2022-10-22] MEDS: HYDROcodone-ACET 5/325MG TAB PO PRN (23:49)
[2022-10-23] MEDS: guaiFENesin-DM 100/10mg/5ml SYR PO PRN ×3 (04:32→15:12)
[2022-10-23] MEDS: HYDROcodone-ACET 5/325MG TAB PO PRN (04:32)
[2022-10-23] MEDS: hydrALAZINE HCL 10 MG TAB PO PRN (04:52)
[2022-10-23 05:00] VITALS: BP 164/73
[2022-10-23] MEDS: ALBUTEROL SULF 2.5 MG/0.5ML(0.5%) NEB SOLN NEB SCH ×5 (05:58→22:12)
[2022-10-23] MEDS: IPRATROPIUM BROM 0.5 MG/2.5ML INH SOL NEB SCH ×5 (05:58→22:12)
[2022-10-23 06:10] LABS: BUN/Creatinine Ratio 17.3 (10.0-20.0); Calcium 8.7 mg/dL (8.5-10.1)
[2022-10-23] MEDS: LEVOTHYROXINE SODIUM 100 MCG TAB PO SCH (06:12)
[2022-10-23] MEDS: SODIUM CHLOR 0.9% PF (SALINE LOCK) 10ML VIAL/SYR IV SCH ×3 (06:12→21:00)
[2022-10-23] MEDS: methylPREDNISolone SOD SUCC 40 MG/ML VL IV SCH ×3 (06:12→21:00)
[2022-10-23] MEDS: InsuLIN REG 1unit/0.01ml Soln (100units/ml) SC SCH ×4 (06:14→21:59)
[2022-10-23] MEDS: ACCU-CHEK COMFORT CURVE STRIP VI SCH ×4 (06:14→21:01)
[2022-10-23 06:45] LABS: Basophils # (auto) 0 10 ^3/uL (0-0.2); Basophils % (auto) 0.2 % (0.0-2.0); Eosinophils # (auto) 0 10 ^3/uL (0-0.8); Hematocrit 33.4 % (36.0-46.0); Hemoglobin 11.2 g/dL (12.2-16.2); Lymphocytes # (auto) 0.7 10 ^3/uL (0.4-5.4); Lymphocytes % (auto) 3.4 % (10.0-50.0); Mean Corpuscular Hemoglobin 31.7 pg (28.0-32.0); Mean Corpuscular Hgb Conc. 33.6 g/dL (32.0-36.0); Mean Corpuscular Volume 94.3 fL (80.0-100.0); Monocytes # (auto) 1.1 10 ^3/uL (0-1.3); Monocytes % (auto) 5.4 % (0.0-12.0); Red Blood Cells 3.54 10^6/uL (4.0-5.20); Red Cell Distribution Width 17.3 % (11.8-14.3); White Blood Cell 19.7 10^3/uL (4.4-10.8)
[2022-10-23 08:30] VITALS: BP 116/95
[2022-10-23] MEDS: MUPIROCIN 2% OINT 15gm or 22gm FOR MRSA NARES EACHNOSTRI SCH ×2 (09:23→21:01)
[2022-10-23] MEDS: cefTRIAXone 1GM/50ML D5W 50 ML IV SCH (09:23)
[2022-10-23] MEDS: SEVELAMER 800 MG TAB PO SCH ×3 (09:23→17:55)
[2022-10-23] MEDS: PANTOPRAZOLE 40 MG/10 ML VIAL INJ IV SCH (09:23)
[2022-10-23] MEDS: APIXABAN 2.5 MG TAB PO SCH ×2 (09:24→21:00)
[2022-10-23] MEDS: METOPROLOL TARTRATE 25 MG TAB PO SCH ×2 (09:25→21:01)
[2022-10-23] MEDS: ATORVASTATIN 20 MG TAB PO SCH (09:25)
[2022-10-23] MEDS: RANOLAZINE ER 500 MG TAB PO SCH ×2 (09:25→21:00)
[2022-10-23] MEDS: AZITHROMYCIN 500MG/ 250ML 250 ML IV SCH (09:57)
[2022-10-23 12:30] VITALS: BP 112/73
[2022-10-23] MEDS: ACETYLCYSTEINE 20%(200MG/ML) SOL 4ML NEB SCH ×2 (13:57→22:18)
[2022-10-23 16:44] VITALS: BP 148/74
[2022-10-23] MEDS: FUROSEMIDE 100 MG/10ML VIAL IV SCH (17:54)
[2022-10-23] MEDS ORDERED: levoFLOXacin 500MG 100 ML IV ONE (20:30)
[2022-10-23] MEDS: BUMETANIDE 2.5mg/10ml (0.25 mg/ml) INJ IV SCH (22:02)
[2022-10-23 22:12] VITALS: BP 171/81
[2022-10-24] VITALS (26 sets, daily range): BP systolic 92–175; BP diastolic 53–85
[2022-10-24] MEDS: HYDROcodone-ACET 5/325MG TAB PO PRN (00:58)
[2022-10-24] MEDS: hydrALAZINE HCL 10 MG TAB PO PRN (00:58)
[2022-10-24] MEDS: methylPREDNISolone SOD SUCC 40 MG/ML VL IV SCH ×2 (05:03→22:48)
[2022-10-24] MEDS: SODIUM CHLOR 0.9% PF (SALINE LOCK) 10ML VIAL/SYR IV SCH ×3 (05:04→22:48)
[2022-10-24] MEDS: BUMETANIDE 2.5mg/10ml (0.25 mg/ml) INJ IV SCH ×2 (05:04→19:01)
[2022-10-24] MEDS: FUROSEMIDE 100 MG/10ML VIAL IV SCH (05:04)
[2022-10-24] MEDS: LEVOTHYROXINE SODIUM 100 MCG TAB PO SCH (05:07)
[2022-10-24] MEDS: ACCU-CHEK COMFORT CURVE STRIP VI SCH ×4 (05:24→22:24)
[2022-10-24] MEDS: InsuLIN REG 1unit/0.01ml Soln (100units/ml) SC SCH ×4 (06:10→22:50)
[2022-10-24] MEDS: ALBUTEROL SULF 2.5 MG/0.5ML(0.5%) NEB SOLN NEB SCH ×5 (07:33→22:07)
[2022-10-24] MEDS: IPRATROPIUM BROM 0.5 MG/2.5ML INH SOL NEB SCH ×5 (07:33→22:07)
[2022-10-24] MEDS: ACETYLCYSTEINE 20%(200MG/ML) SOL 4ML NEB SCH ×3 (07:34→22:07)
[2022-10-24] MEDS: SEVELAMER 800 MG TAB PO SCH ×3 (07:39→19:01)
[2022-10-24] MEDS: ALBUMIN 25% 100 ML IV SCH ×2 (09:00→10:00)
[2022-10-24] MEDS: LORazepam 2MG/ML-1ML VIAL IV PRN ×2 (09:03→22:45)
[2022-10-24] MEDS: APIXABAN 2.5 MG TAB PO SCH (10:00)
[2022-10-24] MEDS: ATORVASTATIN 20 MG TAB PO SCH (10:00)
[2022-10-24] MEDS: RANOLAZINE ER 500 MG TAB PO SCH ×2 (10:00→22:49)
[2022-10-24] MEDS: METOPROLOL TARTRATE 25 MG TAB PO SCH ×2 (10:00→22:49)
[2022-10-24] MEDS ORDERED: VANCOMYCIN PER PHARMACY 0 MG IV SCH (10:45)
[2022-10-24] MEDS ORDERED: VANCOMYCIN 1GM/250ML 250 ML IV ONE (11:30)
[2022-10-24] MEDS: VALPROATE INJ 500 MG in SODIUM CHL 0.9% 100 ML IV SCH ×2 (12:19→23:29)
[2022-10-24] MEDS: MUPIROCIN 2% OINT 15gm or 22gm FOR MRSA NARES EACHNOSTRI SCH ×2 (12:19→22:47)
[2022-10-24] MEDS: AZITHROMYCIN 500MG/ 250ML 250 ML IV SCH (12:42)
[2022-10-24] MEDS: PANTOPRAZOLE 40 MG/10 ML VIAL INJ IV SCH (12:42)
[2022-10-24] MEDS: HEPARIN SODIUM (PORCINE) 5000 UNITS/ML 1ML VIAL SC SCH ×2 (17:19→22:50)
[2022-10-24] MEDS ORDERED: EPOETIN ALFA-EPBX 4,000 UNIT/ML VIAL SC ONE (21:00)
[2022-10-24] MEDS ORDERED: VALPROATE INJ 500 MG in SODIUM CHL 0.9% 100 ML IV SCH (22:00)
[2022-10-24] MEDS ORDERED: DEXTROSE 10% 250 ML IV ONE (22:37)
[2022-10-24] MEDS: guaiFENesin-DM 100/10mg/5ml SYR PO PRN (23:49)
[2022-10-25] VITALS (29 sets, daily range): BP systolic 101–172; BP diastolic 41–79
[2022-10-25 05:14] LABS: Basophils # (auto) 0.2 10 ^3/uL (0-0.2); Basophils % (auto) 1.1 % (0.0-2.0); Eosinophils # (auto) 0 10 ^3/uL (0-0.8); Eosinophils % (auto) 0.1 % (0.0-7.0); Hematocrit 28.6 % (36.0-46.0); Hemoglobin 9.5 g/dL (12.2-16.2); Lymphocytes # (auto) 0.2 10 ^3/uL (0.4-5.4); Lymphocytes % (auto) 1.2 % (10.0-50.0); Mean Corpuscular Hemoglobin 31.5 pg (28.0-32.0); Mean Corpuscular Hgb Conc. 33.3 g/dL (32.0-36.0); Mean Corpuscular Volume 94.4 fL (80.0-100.0); Monocytes # (auto) 1.1 10 ^3/uL (0-1.3); Monocytes % (auto) 6.3 % (0.0-12.0); Neutrophils # (auto) 16.5 10 ^3/uL (1.6-8.6); Neutrophils % (auto) 91.3 % (37.0-80.0); Nucleated Red Blood Cells % 0.1 %; Red Blood Cells 3.03 10^6/uL (4.0-5.20); Red Cell Distribution Width 17.5 % (11.8-14.3); White Blood Cell 18.1 10^3/uL (4.4-10.8)
[2022-10-25] MEDS: LORazepam 2MG/ML-1ML VIAL IV PRN (05:20)
[2022-10-25 05:25] LABS: Albumin 2.8 g/dL (3.4-5.0); Calcium 8.4 mg/dL (8.5-10.1); Potassium 4.8 mmol/L (3.5-5.1)
[2022-10-25 05:29] LABS: BUN/Creatinine Ratio 15.4 (10.0-20.0); Bilirubin, Total 0.4 mg/dL (0.2-1.0); Total Protein 6.2 g/dL (6.4-8.2)
[2022-10-25] MEDS: ACETYLCYSTEINE 20%(200MG/ML) SOL 4ML NEB SCH ×3 (05:44→21:57)
[2022-10-25] MEDS: ALBUTEROL SULF 2.5 MG/0.5ML(0.5%) NEB SOLN NEB SCH ×5 (05:45→21:57)
[2022-10-25] MEDS: IPRATROPIUM BROM 0.5 MG/2.5ML INH SOL NEB SCH ×5 (05:45→21:57)
[2022-10-25] MEDS: HEPARIN SODIUM (PORCINE) 5000 UNITS/ML 1ML VIAL SC SCH ×3 (06:00→22:35)
[2022-10-25] MEDS: SODIUM CHLOR 0.9% PF (SALINE LOCK) 10ML VIAL/SYR IV SCH ×3 (06:24→22:03)
[2022-10-25] MEDS: BUMETANIDE 2.5mg/10ml (0.25 mg/ml) INJ IV SCH ×2 (06:24→18:00)
[2022-10-25] MEDS: LEVOTHYROXINE SODIUM 100 MCG TAB PO SCH ×2 (06:36→07:00)
[2022-10-25] MEDS: ACCU-CHEK COMFORT CURVE STRIP VI SCH ×4 (07:11→22:37)
[2022-10-25] MEDS: InsuLIN REG 1unit/0.01ml Soln (100units/ml) SC SCH ×4 (07:19→22:36)
[2022-10-25] MEDS: SEVELAMER 800 MG TAB PO SCH ×3 (08:00→18:00)
[2022-10-25] MEDS: guaiFENesin-DM 100/10mg/5ml SYR PO PRN ×2 (09:06→17:59)
[2022-10-25] MEDS: MUPIROCIN 2% OINT 15gm or 22gm FOR MRSA NARES EACHNOSTRI SCH (10:00)
[2022-10-25] MEDS ORDERED: levoFLOXacin 250MG 50 ML IV SCH (10:00)
[2022-10-25] MEDS: methylPREDNISolone SOD SUCC 40 MG/ML VL IV SCH ×2 (11:05→22:03)
[2022-10-25] MEDS: PANTOPRAZOLE 40 MG/10 ML VIAL INJ IV SCH (11:05)
[2022-10-25] MEDS: RANOLAZINE ER 500 MG TAB PO SCH ×3 (11:05→22:04)
[2022-10-25] MEDS: METOPROLOL TARTRATE 25 MG TAB PO SCH ×2 (11:06→22:05)
[2022-10-25] MEDS: ATORVASTATIN 20 MG TAB PO SCH (11:06)
[2022-10-25] MEDS: AZITHROMYCIN 500MG/ 250ML 250 ML IV SCH (11:07)
[2022-10-25] MEDS: VALPROATE INJ 500 MG in SODIUM CHL 0.9% 100 ML IV SCH ×2 (12:58→22:03)
[2022-10-25] MEDS ORDERED: VANCOMYCIN 1GM/250ML 250 ML IV ONE (13:00)
[2022-10-25] MEDS ORDERED: VANCOMYCIN 750mg/250ml 250 ML IV ONE (13:00)
[2022-10-25] MEDS ORDERED: LORazepam 2MG/ML-1ML VIAL IV PRN (13:45)
[2022-10-26] VITALS (25 sets, daily range): BP systolic 109–178; BP diastolic 38–78
[2022-10-26] MEDS: guaiFENesin-DM 100/10mg/5ml SYR PO PRN ×4 (00:38→23:18)
[2022-10-26 05:40] LABS: Basophils # (auto) 0 10 ^3/uL (0-0.2); Basophils % (auto) 0.2 % (0.0-2.0); Eosinophils # (auto) 0 10 ^3/uL (0-0.8); Eosinophils % (auto) 0.1 % (0.0-7.0); Hematocrit 27.3 % (36.0-46.0); Hemoglobin 9.5 g/dL (12.2-16.2); Lymphocytes # (auto) 0.2 10 ^3/uL (0.4-5.4); Lymphocytes % (auto) 2.1 % (10.0-50.0); Mean Corpuscular Hemoglobin 32.8 pg (28.0-32.0); Mean Corpuscular Volume 93.9 fL (80.0-100.0); Monocytes # (auto) 0.4 10 ^3/uL (0-1.3); Monocytes % (auto) 3.3 % (0.0-12.0); Neutrophils # (auto) 10.9 10 ^3/uL (1.6-8.6); Neutrophils % (auto) 94.3 % (37.0-80.0); Red Cell Distribution Width 17.2 % (11.8-14.3); White Blood Cell 11.6 10^3/uL (4.4-10.8)
[2022-10-26 05:59] LABS: Anion Gap 11 (5-15); Calcium 8.8 mg/dL (8.5-10.1); Carbon Dioxide 24 mmol/L (21-32); Chloride 88 mmol/L (98-107); Glucose 153 mg/dL (74-106); Magnesium 2.2 mg/dL (1.6-2.6); Potassium 5.4 mmol/L (3.5-5.1); Sodium 123 mmol/L (136-145)
[2022-10-26 06:02] LABS: BUN/Creatinine Ratio 16.5 (10.0-20.0); GFR African American 11 mL/min; GFR Non-African American 9 mL/min
[2022-10-26] MEDS: IPRATROPIUM BROM 0.5 MG/2.5ML INH SOL NEB SCH ×5 (06:15→22:38)
[2022-10-26] MEDS: ALBUTEROL SULF 2.5 MG/0.5ML(0.5%) NEB SOLN NEB SCH ×5 (06:15→22:38)
[2022-10-26] MEDS: ACETYLCYSTEINE 20%(200MG/ML) SOL 4ML NEB SCH ×2 (06:15→22:38)
[2022-10-26 06:21] LABS: Blood Urea Nitrogen 81 mg/dL (7-18)
[2022-10-26] MEDS: SODIUM CHLOR 0.9% PF (SALINE LOCK) 10ML VIAL/SYR IV SCH ×3 (06:25→22:28)
[2022-10-26] MEDS: BUMETANIDE 2.5mg/10ml (0.25 mg/ml) INJ IV SCH ×2 (06:25→16:57)
[2022-10-26] MEDS: HEPARIN SODIUM (PORCINE) 5000 UNITS/ML 1ML VIAL SC SCH ×3 (06:26→22:30)
[2022-10-26] MEDS: LEVOTHYROXINE SODIUM 100 MCG TAB PO SCH (06:33)
[2022-10-26] MEDS: InsuLIN REG 1unit/0.01ml Soln (100units/ml) SC SCH ×4 (06:52→22:00)
[2022-10-26] MEDS: ACCU-CHEK COMFORT CURVE STRIP VI SCH ×4 (06:53→22:00)
[2022-10-26] MEDS ORDERED: ALBUMIN 25% 100 ML IV ONE (07:00)
[2022-10-26] MEDS ORDERED: SODIUM CHL 0.9% 1000 ML BAG XX ONE (07:00)
[2022-10-26] MEDS: SEVELAMER 800 MG TAB PO SCH ×3 (08:00→16:56)
[2022-10-26] MEDS: PANTOPRAZOLE 40 MG/10 ML VIAL INJ IV SCH (08:36)
[2022-10-26] MEDS: methylPREDNISolone SOD SUCC 40 MG/ML VL IV SCH ×2 (08:37→22:28)
[2022-10-26] MEDS: AZITHROMYCIN 500MG/ 250ML 250 ML IV SCH (08:37)
[2022-10-26] MEDS: VALPROATE INJ 500 MG in SODIUM CHL 0.9% 100 ML IV SCH ×2 (08:37→22:00)
[2022-10-26] MEDS: RANOLAZINE ER 500 MG TAB PO SCH ×2 (08:52→10:50)
[2022-10-26] MEDS: METOPROLOL TARTRATE 25 MG TAB PO SCH ×2 (10:51→22:33)
[2022-10-26] MEDS: ATORVASTATIN 20 MG TAB PO SCH (10:52)
[2022-10-26] MEDS ORDERED: VANCOMYCIN 750mg/250ml 250 ML IV ONE (18:00)
[2022-10-27] VITALS (23 sets, daily range): BP systolic 141–172; BP diastolic 47–79
[2022-10-27 05:33] LABS: Basophils # (auto) 0.1 10 ^3/uL (0-0.2); Basophils % (auto) 0.3 % (0.0-2.0); Eosinophils # (auto) 0 10 ^3/uL (0-0.8); Hematocrit 30.4 % (36.0-46.0); Hemoglobin 10.4 g/dL (12.2-16.2); Lymphocytes # (auto) 0.2 10 ^3/uL (0.4-5.4); Lymphocytes % (auto) 1.1 % (10.0-50.0); Mean Corpuscular Hemoglobin 31.7 pg (28.0-32.0); Mean Corpuscular Hgb Conc. 34.2 g/dL (32.0-36.0); Mean Corpuscular Volume 92.8 fL (80.0-100.0); Monocytes # (auto) 0.6 10 ^3/uL (0-1.3); Monocytes % (auto) 3.4 % (0.0-12.0); Neutrophils # (auto) 16.1 10 ^3/uL (1.6-8.6); Neutrophils % (auto) 95.2 % (37.0-80.0); Red Blood Cells 3.27 10^6/uL (4.0-5.20); Red Cell Distribution Width 17.3 % (11.8-14.3); White Blood Cell 16.9 10^3/uL (4.4-10.8)
[2022-10-27 06:01] LABS: Potassium 4.6 mmol/L (3.5-5.1)
[2022-10-27 06:07] LABS: BUN/Creatinine Ratio 17.6 (10.0-20.0); Calcium 9.3 mg/dL (8.5-10.1); Magnesium 2.1 mg/dL (1.6-2.6)
[2022-10-27] MEDS: SODIUM CHLOR 0.9% PF (SALINE LOCK) 10ML VIAL/SYR IV SCH ×3 (06:26→22:05)
[2022-10-27] MEDS: BUMETANIDE 2.5mg/10ml (0.25 mg/ml) INJ IV SCH ×2 (06:26→17:30)
[2022-10-27] MEDS: HEPARIN SODIUM (PORCINE) 5000 UNITS/ML 1ML VIAL SC SCH ×3 (06:27→22:12)
[2022-10-27] MEDS: ACCU-CHEK COMFORT CURVE STRIP VI SCH ×4 (06:39→22:11)
[2022-10-27] MEDS: InsuLIN REG 1unit/0.01ml Soln (100units/ml) SC SCH ×4 (06:41→22:11)
[2022-10-27] MEDS: IPRATROPIUM BROM 0.5 MG/2.5ML INH SOL NEB SCH ×5 (06:43→23:00)
[2022-10-27] MEDS: ALBUTEROL SULF 2.5 MG/0.5ML(0.5%) NEB SOLN NEB SCH ×5 (06:43→23:01)
[2022-10-27] MEDS: ACETYLCYSTEINE 20%(200MG/ML) SOL 4ML NEB SCH ×3 (06:43→23:01)
[2022-10-27] MEDS: LEVOTHYROXINE SODIUM 100 MCG TAB PO SCH (06:45)
[2022-10-27] MEDS ORDERED: SODIUM CHL 0.9% 1000 ML BAG XX ONE (07:00)
[2022-10-27] MEDS: SEVELAMER 800 MG TAB PO SCH ×3 (08:13→17:30)
[2022-10-27] MEDS: PANTOPRAZOLE 40 MG/10 ML VIAL INJ IV SCH (08:13)
[2022-10-27] MEDS: RANOLAZINE ER 500 MG TAB PO SCH ×2 (08:14→21:46)
[2022-10-27] MEDS: ATORVASTATIN 20 MG TAB PO SCH (08:14)
[2022-10-27] MEDS: AZITHROMYCIN 500MG/ 250ML 250 ML IV SCH (08:15)
[2022-10-27] MEDS: methylPREDNISolone SOD SUCC 40 MG/ML VL IV SCH (08:15)
[2022-10-27] MEDS: METOPROLOL TARTRATE 25 MG TAB PO SCH ×2 (08:16→21:43)
[2022-10-27] MEDS: VALPROATE INJ 500 MG in SODIUM CHL 0.9% 100 ML IV SCH ×2 (08:16→21:56)
[2022-10-27] MEDS ORDERED: cefTRIAXone 1GM/50ML D5W 50 ML IV SCH (09:00)
[2022-10-27] MEDS: FLUCONAZOLE 200MG/100ML 100 ML IV SCH ×2 (11:00→12:00)
[2022-10-27] MEDS ORDERED: EPOETIN ALFA-EPBX 10,000 UNIT/1ML VIAL SC ONE (21:00)
[2022-10-27] MEDS ORDERED: MEROPENEM 1GM IVPB 100 ML IV SCH (22:00)
[2022-10-27] MEDS: MUPIROCIN 2% OINT 15gm or 22gm FOR MRSA NARES TOP SCH (22:13)
[2022-10-27] MEDS: MEROPENEM 500MG IVPB 50 ML IV SCH (23:06)
[2022-10-28] VITALS (23 sets, daily range): BP systolic 116–156; BP diastolic 27–73
[2022-10-28] MEDS: ALBUTEROL SULF 2.5 MG/0.5ML(0.5%) NEB SOLN NEB SCH ×5 (06:36→21:56)
[2022-10-28] MEDS: ACETYLCYSTEINE 20%(200MG/ML) SOL 4ML NEB SCH ×3 (06:37→19:00)
[2022-10-28] MEDS: IPRATROPIUM BROM 0.5 MG/2.5ML INH SOL NEB SCH ×5 (06:37→21:56)
[2022-10-28 06:46] LABS: Chloride 99 mmol/L (98-107); Potassium 4.6 mmol/L (3.5-5.1); Sodium 137 mmol/L (136-145)
[2022-10-28 06:48] LABS: Basophils # (auto) 0 10 ^3/uL (0-0.2); Basophils % (auto) 0.1 % (0.0-2.0); Eosinophils # (auto) 0.1 10 ^3/uL (0-0.8); Eosinophils % (auto) 0.6 % (0.0-7.0); Hematocrit 34.7 % (36.0-46.0); Hemoglobin 11.1 g/dL (12.2-16.2); Lymphocytes # (auto) 0.8 10 ^3/uL (0.4-5.4); Lymphocytes % (auto) 4.6 % (10.0-50.0); Mean Corpuscular Hemoglobin 31.8 pg (28.0-32.0); Mean Corpuscular Volume 99.3 fL (80.0-100.0); Monocytes # (auto) 1.7 10 ^3/uL (0-1.3); Monocytes % (auto) 9.7 % (0.0-12.0); Nucleated Red Blood Cells % 0.1 %; Red Blood Cells 3.49 10^6/uL (4.0-5.20); White Blood Cell 17.7 10^3/uL (4.4-10.8)
[2022-10-28] MEDS: LEVOTHYROXINE SODIUM 100 MCG TAB PO SCH (06:49)
[2022-10-28] MEDS: SODIUM CHLOR 0.9% PF (SALINE LOCK) 10ML VIAL/SYR IV SCH ×3 (06:54→22:32)
[2022-10-28] MEDS: BUMETANIDE 2.5mg/10ml (0.25 mg/ml) INJ IV SCH ×2 (06:55→17:44)
[2022-10-28 06:58] LABS: Alanine Aminotransferase 11 U/L (13-56); Albumin 2.8 g/dL (3.4-5.0); Anion Gap 15 (5-15); Aspartate Aminotransferase 19 U/L (15-37); BUN/Creatinine Ratio 13.8 (10.0-20.0); Blood Urea Nitrogen 39 mg/dL (7-18); Calcium 9.2 mg/dL (8.5-10.1); Carbon Dioxide 23 mmol/L (21-32); GFR African American 21 mL/min; GFR Non-African American 17 mL/min; Glucose 63 mg/dL (74-106)
[2022-10-28 07:00] LABS: Alkaline Phosphatase 129 U/L (45-117); Bilirubin, Total 0.4 mg/dL (0.2-1.0); Total Protein 5.8 g/dL (6.4-8.2)
[2022-10-28] MEDS: InsuLIN REG 1unit/0.01ml Soln (100units/ml) SC SCH ×4 (07:00→22:36)
[2022-10-28] MEDS: ACCU-CHEK COMFORT CURVE STRIP VI SCH ×4 (07:01→22:34)
[2022-10-28] MEDS: HEPARIN SODIUM (PORCINE) 5000 UNITS/ML 1ML VIAL SC SCH ×3 (07:01→22:37)
[2022-10-28] MEDS: VALPROATE INJ 500 MG in SODIUM CHL 0.9% 100 ML IV SCH ×2 (07:45→22:31)
[2022-10-28] MEDS: PANTOPRAZOLE 40 MG/10 ML VIAL INJ IV SCH (07:45)
[2022-10-28] MEDS: MUPIROCIN 2% OINT 15gm or 22gm FOR MRSA NARES TOP SCH ×2 (07:45→22:34)
[2022-10-28] MEDS: SEVELAMER 800 MG TAB PO SCH ×3 (07:46→17:44)
[2022-10-28] MEDS: METOPROLOL TARTRATE 25 MG TAB PO SCH ×2 (07:47→22:33)
[2022-10-28] MEDS: RANOLAZINE ER 500 MG TAB PO SCH ×2 (07:47→22:34)
[2022-10-28] MEDS: ATORVASTATIN 20 MG TAB PO SCH (07:48)
[2022-10-28] MEDS: MEROPENEM 500MG IVPB 50 ML IV SCH (07:48)
[2022-10-28] MEDS: guaiFENesin-DM 100/10mg/5ml SYR PO PRN (07:59)
[2022-10-28] MEDS ORDERED: LACTULOSE 20Gm/30ML SOLN PO PRN (13:00)
[2022-10-28] MEDS ORDERED: FLUCONAZOLE 100 MG TAB PO ONE (13:45)
[2022-10-28] MEDS: LACTULOSE 20Gm/30ML SOLN PO SCH ×2 (14:28→22:33)
[2022-10-28] MEDS: methylPREDNISolone SOD SUCC 40 MG/ML VL IV SCH (22:32)
[2022-10-29] VITALS (7 sets, daily range): BP systolic 135–186; BP diastolic 40–84
[2022-10-29] MEDS: SODIUM CHLOR 0.9% PF (SALINE LOCK) 10ML VIAL/SYR IV SCH ×3 (06:16→22:30)
[2022-10-29] MEDS: BUMETANIDE 2.5mg/10ml (0.25 mg/ml) INJ IV SCH ×2 (06:16→18:07)
[2022-10-29] MEDS: methylPREDNISolone SOD SUCC 40 MG/ML VL IV SCH ×3 (06:17→22:30)
[2022-10-29] MEDS: LACTULOSE 20Gm/30ML SOLN PO SCH ×3 (06:17→22:00)
[2022-10-29] MEDS: HEPARIN SODIUM (PORCINE) 5000 UNITS/ML 1ML VIAL SC SCH ×3 (06:24→22:35)
[2022-10-29] MEDS: LEVOTHYROXINE SODIUM 100 MCG TAB PO SCH (06:28)
[2022-10-29] MEDS: ACCU-CHEK COMFORT CURVE STRIP VI SCH ×4 (06:29→22:33)
[2022-10-29] MEDS: InsuLIN REG 1unit/0.01ml Soln (100units/ml) SC SCH ×4 (06:30→22:59)
[2022-10-29 06:34] LABS: Basophils # (auto) 0 10 ^3/uL (0-0.2); Eosinophils # (auto) 0 10 ^3/uL (0-0.8); Eosinophils % (auto) 0.2 % (0.0-7.0); Hematocrit 31.9 % (36.0-46.0); Hemoglobin 10.7 g/dL (12.2-16.2); Lymphocytes # (auto) 0.2 10 ^3/uL (0.4-5.4); Lymphocytes % (auto) 1.8 % (10.0-50.0); Mean Corpuscular Hgb Conc. 33.6 g/dL (32.0-36.0); Mean Corpuscular Volume 95.2 fL (80.0-100.0); Monocytes # (auto) 0.2 10 ^3/uL (0-1.3); Monocytes % (auto) 1.8 % (0.0-12.0); Neutrophils # (auto) 12.7 10 ^3/uL (1.6-8.6); Neutrophils % (auto) 96.2 % (37.0-80.0); Red Blood Cells 3.35 10^6/uL (4.0-5.20); Red Cell Distribution Width 16.8 % (11.8-14.3); White Blood Cell 13.2 10^3/uL (4.4-10.8)
[2022-10-29] MEDS: ACETYLCYSTEINE 20%(200MG/ML) SOL 4ML NEB SCH ×3 (06:48→22:52)
[2022-10-29] MEDS: IPRATROPIUM BROM 0.5 MG/2.5ML INH SOL NEB SCH ×5 (06:48→22:52)
[2022-10-29] MEDS: ALBUTEROL SULF 2.5 MG/0.5ML(0.5%) NEB SOLN NEB SCH ×5 (06:48→22:52)
[2022-10-29 07:19] LABS: Albumin 2.7 g/dL (3.4-5.0); Calcium 8.7 mg/dL (8.5-10.1); Potassium 5.4 mmol/L (3.5-5.1)
[2022-10-29 07:25] LABS: BUN/Creatinine Ratio 16.5 (10.0-20.0); Bilirubin, Total 0.4 mg/dL (0.2-1.0); Total Protein 5.8 g/dL (6.4-8.2)
[2022-10-29] MEDS: SEVELAMER 800 MG TAB PO SCH ×3 (08:38→18:42)
[2022-10-29] MEDS: VALPROATE INJ 500 MG in SODIUM CHL 0.9% 100 ML IV SCH ×2 (10:31→22:30)
[2022-10-29] MEDS: PANTOPRAZOLE 40 MG/10 ML VIAL INJ IV SCH (10:31)
[2022-10-29] MEDS: METOPROLOL TARTRATE 25 MG TAB PO SCH ×2 (10:32→22:32)
[2022-10-29] MEDS: RANOLAZINE ER 500 MG TAB PO SCH ×2 (10:32→22:33)
[2022-10-29] MEDS: MUPIROCIN 2% OINT 15gm or 22gm FOR MRSA NARES TOP SCH ×2 (10:33→22:33)
[2022-10-29] MEDS: hydrALAZINE HCL 10 MG TAB PO PRN ×2 (10:56→20:22)
[2022-10-29] MEDS: ATORVASTATIN 20 MG TAB PO SCH (21:55)
[2022-10-30] VITALS (7 sets, daily range): BP systolic 125–182; BP diastolic 40–56
[2022-10-30] MEDS: guaiFENesin-DM 100/10mg/5ml SYR PO PRN ×3 (02:04→15:38)
[2022-10-30] MEDS: ACETAMINOPHEN 325 MG TAB PO PRN (02:05)
[2022-10-30] MEDS: hydrALAZINE HCL 10 MG TAB PO PRN (02:10)
[2022-10-30] MEDS: LACTULOSE 20Gm/30ML SOLN PO SCH ×3 (06:00→22:00)
[2022-10-30] MEDS: SODIUM CHLOR 0.9% PF (SALINE LOCK) 10ML VIAL/SYR IV SCH ×3 (06:18→22:08)
[2022-10-30] MEDS: BUMETANIDE 2.5mg/10ml (0.25 mg/ml) INJ IV SCH ×2 (06:18→17:07)
[2022-10-30] MEDS: methylPREDNISolone SOD SUCC 40 MG/ML VL IV SCH ×3 (06:19→22:09)
[2022-10-30] MEDS: IPRATROPIUM BROM 0.5 MG/2.5ML INH SOL NEB SCH ×5 (06:22→22:03)
[2022-10-30] MEDS: ALBUTEROL SULF 2.5 MG/0.5ML(0.5%) NEB SOLN NEB SCH ×5 (06:22→22:03)
[2022-10-30] MEDS: ACETYLCYSTEINE 20%(200MG/ML) SOL 4ML NEB SCH ×3 (06:22→22:04)
[2022-10-30] MEDS: HEPARIN SODIUM (PORCINE) 5000 UNITS/ML 1ML VIAL SC SCH ×3 (06:30→22:15)
[2022-10-30] MEDS: LEVOTHYROXINE SODIUM 100 MCG TAB PO SCH (06:32)
[2022-10-30] MEDS: ACCU-CHEK COMFORT CURVE STRIP VI SCH ×4 (06:32→22:11)
[2022-10-30] MEDS: InsuLIN REG 1unit/0.01ml Soln (100units/ml) SC SCH ×4 (06:34→22:29)
[2022-10-30] MEDS: SEVELAMER 800 MG TAB PO SCH (08:25)
[2022-10-30] MEDS: PANTOPRAZOLE 40 MG/10 ML VIAL INJ IV SCH (09:16)
[2022-10-30] MEDS: METOPROLOL TARTRATE 25 MG TAB PO SCH ×2 (09:16→22:10)
[2022-10-30] MEDS: RANOLAZINE ER 500 MG TAB PO SCH ×2 (09:17→22:10)
[2022-10-30] MEDS: VALPROATE INJ 500 MG in SODIUM CHL 0.9% 100 ML IV SCH ×2 (09:17→22:08)
[2022-10-30] MEDS: MUPIROCIN 2% OINT 15gm or 22gm FOR MRSA NARES TOP SCH ×2 (09:17→22:11)
[2022-10-30 10:03] LABS: Hematocrit 32.5 % (36.0-46.0); Hemoglobin 10.9 g/dL (12.2-16.2); Mean Corpuscular Hgb Conc. 33.7 g/dL (32.0-36.0); Mean Corpuscular Volume 92.1 fL (80.0-100.0); Red Blood Cells 3.53 10^6/uL (4.0-5.20); Red Cell Distribution Width 17.2 % (11.8-14.3); White Blood Cell 21.9 10^3/uL (4.4-10.8)
[2022-10-30 10:20] LABS: Albumin 2.8 g/dL (3.4-5.0); Calcium 9.4 mg/dL (8.5-10.1); Potassium 5.5 mmol/L (3.5-5.1)
[2022-10-30 10:24] LABS: BUN/Creatinine Ratio 17.4 (10.0-20.0); Basophils % (manual) 0 (0.0-2.0); Bilirubin, Total 0.4 mg/dL (0.2-1.0); Blast Cells 0; Eosinophils % (manual) 0 (0-7); Metamyelocytes % 0; Promyelocytes % 0; Reactive Lymphocytes 0; Total Protein 6.4 g/dL (6.4-8.2)
[2022-10-30 11:01] LABS: Band Neutrophils % (manual) 9; Lymphocytes % (manual) 2 (10.0-50.0); Monocytes % (manual) 8 (0-12); Myelocytes % 4
[2022-10-30] MEDS ORDERED: SODIUM CHL 0.9% 1000 ML BAG XX ONE (12:30)
[2022-10-30] MEDS: ALBUMIN 25% 100 ML IV PRN ×2 (16:07→16:38)
[2022-10-30] MEDS: ATORVASTATIN 20 MG TAB PO SCH (21:24)
[2022-10-31] VITALS (53 sets, daily range): BP systolic 106–171; BP diastolic 28–72
[2022-10-31] MEDS: BUMETANIDE 2.5mg/10ml (0.25 mg/ml) INJ IV SCH ×2 (05:54→18:23)
[2022-10-31] MEDS: SODIUM CHLOR 0.9% PF (SALINE LOCK) 10ML VIAL/SYR IV SCH ×3 (05:55→21:33)
[2022-10-31] MEDS: methylPREDNISolone SOD SUCC 40 MG/ML VL IV SCH ×3 (05:55→21:32)
[2022-10-31] MEDS: LACTULOSE 20Gm/30ML SOLN PO SCH ×3 (05:56→21:32)
[2022-10-31] MEDS: HEPARIN SODIUM (PORCINE) 5000 UNITS/ML 1ML VIAL SC SCH ×3 (05:59→21:36)
[2022-10-31] MEDS: LEVOTHYROXINE SODIUM 100 MCG TAB PO SCH (06:12)
[2022-10-31] MEDS: ACCU-CHEK COMFORT CURVE STRIP VI SCH ×4 (06:12→21:41)
[2022-10-31] MEDS: ACETYLCYSTEINE 20%(200MG/ML) SOL 4ML NEB SCH ×2 (06:25→22:25)
[2022-10-31] MEDS: IPRATROPIUM BROM 0.5 MG/2.5ML INH SOL NEB SCH ×4 (06:25→22:26)
[2022-10-31] MEDS: ALBUTEROL SULF 2.5 MG/0.5ML(0.5%) NEB SOLN NEB SCH ×4 (06:25→22:25)
[2022-10-31] MEDS: InsuLIN REG 1unit/0.01ml Soln (100units/ml) SC SCH ×4 (06:27→21:42)
[2022-10-31 08:09] LABS: Hematocrit 28.7 % (36.0-46.0); Hemoglobin 9.7 g/dL (12.2-16.2); Mean Corpuscular Hemoglobin 31.6 pg (28.0-32.0); Mean Corpuscular Volume 92.9 fL (80.0-100.0); Red Blood Cells 3.09 10^6/uL (4.0-5.20); Red Cell Distribution Width 17.3 % (11.8-14.3); White Blood Cell 20.4 10^3/uL (4.4-10.8)
[2022-10-31 08:32] LABS: Albumin 3.4 g/dL (3.4-5.0); Calcium 9.7 mg/dL (8.5-10.1); Potassium 5.2 mmol/L (3.5-5.1)
[2022-10-31 08:35] LABS: BUN/Creatinine Ratio 14.9 (10.0-20.0); Bilirubin, Total 0.4 mg/dL (0.2-1.0); Total Protein 6.5 g/dL (6.4-8.2)
[2022-10-31 08:38] LABS: Basophils % (manual) 0 (0.0-2.0); Blast Cells 0; Eosinophils % (manual) 0 (0-7); Metamyelocytes % 0; Promyelocytes % 0; Reactive Lymphocytes 0
[2022-10-31 09:16] LABS: Band Neutrophils % (manual) 13; Lymphocytes % (manual) 3 (10.0-50.0); Monocytes % (manual) 8 (0-12); Myelocytes % 3
[2022-10-31] MEDS: METOPROLOL TARTRATE 25 MG TAB PO SCH ×3 (10:00→21:33)
[2022-10-31] MEDS: RANOLAZINE ER 500 MG TAB PO SCH ×3 (10:00→21:34)
[2022-10-31] MEDS: VALPROATE INJ 500 MG in SODIUM CHL 0.9% 100 ML IV SCH ×2 (10:15→21:33)
[2022-10-31] MEDS: MUPIROCIN 2% OINT 15gm or 22gm FOR MRSA NARES TOP SCH ×2 (10:15→21:34)
[2022-10-31] MEDS: PANTOPRAZOLE 40 MG/10 ML VIAL INJ IV SCH (10:15)
[2022-10-31] MEDS ORDERED: FUROSEMIDE 100 MG/10ML VIAL IV ONE (10:30)
[2022-10-31] MEDS ORDERED: FUROSEMIDE INJECTION 10 ML ONE (10:30)
[2022-10-31] MEDS ORDERED: SUCCINYLCHOLINE CHLORIDE 20 MG/ML 10ML VIAL IV ONE (12:17)
[2022-10-31] MEDS ORDERED: ETOMIDATE (2MG/ML) 20ML VIAL IV ONE ×2 (12:17→12:30)
[2022-10-31] MEDS ORDERED: ROCURONIUM 10MG/ML 10ML VIAL IV ONE ×2 (12:18→12:30)
[2022-10-31] MEDS: fentaNYL Drip 2500mCg/250mlNS 250 ML IV SCH (12:30)
[2022-10-31] MEDS: MIDAZOLAM DRIP 50 mg/50mL 50 ML IV SCH ×2 (12:30→18:51)
[2022-10-31 14:50] LABS: INR 1.04 (0.9-1.15); Partial Thromboplastin Time 34.2 sec (24.6-33.4)
[2022-10-31] MEDS ORDERED: LIDOCAINE 1% (LOCAL ANESTH.) PF 5ml SDV ID ONE (18:15)
[2022-10-31] MEDS: NOREPINEPHRINE 8 MG/250ML KIT 250 ML IV SCH (20:43)
[2022-10-31] MEDS: ATORVASTATIN 20 MG TAB PO SCH (21:32)
[2022-11-01] VITALS (95 sets, daily range): BP systolic 86–196; BP diastolic 20–86
[2022-11-01] MEDS: MIDAZOLAM DRIP 50 mg/50mL 50 ML IV SCH (02:58)
[2022-11-01 05:43] LABS: Hematocrit 28.4 % (36.0-46.0); Hemoglobin 9.7 g/dL (12.2-16.2); Mean Corpuscular Hemoglobin 31.7 pg (28.0-32.0); Mean Corpuscular Volume 93.1 fL (80.0-100.0); Red Blood Cells 3.05 10^6/uL (4.0-5.20); Red Cell Distribution Width 17.2 % (11.8-14.3); White Blood Cell 23.1 10^3/uL (4.4-10.8)
[2022-11-01 05:55] LABS: Basophils % (manual) 0 (0.0-2.0); Blast Cells 0; Eosinophils % (manual) 0 (0-7); Myelocytes % 0; Reactive Lymphocytes 0
[2022-11-01] MEDS: LACTULOSE 20Gm/30ML SOLN PO SCH ×3 (06:00→22:00)
[2022-11-01] MEDS: IPRATROPIUM BROM 0.5 MG/2.5ML INH SOL NEB SCH ×5 (06:01→22:23)
[2022-11-01] MEDS: ACETYLCYSTEINE 20%(200MG/ML) SOL 4ML NEB SCH ×3 (06:01→22:23)
[2022-11-01] MEDS: ALBUTEROL SULF 2.5 MG/0.5ML(0.5%) NEB SOLN NEB SCH ×5 (06:02→22:23)
[2022-11-01 06:11] LABS: Calcium 9.5 mg/dL (8.5-10.1)
[2022-11-01 06:12] LABS: BUN/Creatinine Ratio 17.6 (10.0-20.0)
[2022-11-01] MEDS: LEVOTHYROXINE SODIUM 100 MCG TAB PO SCH (06:26)
[2022-11-01] MEDS: methylPREDNISolone SOD SUCC 40 MG/ML VL IV SCH ×3 (06:27→22:10)
[2022-11-01] MEDS: BUMETANIDE 2.5mg/10ml (0.25 mg/ml) INJ IV SCH ×2 (06:28→17:00)
[2022-11-01] MEDS: ACCU-CHEK COMFORT CURVE STRIP VI SCH ×4 (06:29→23:32)
[2022-11-01] MEDS: SODIUM CHLOR 0.9% PF (SALINE LOCK) 10ML VIAL/SYR IV SCH ×3 (06:29→22:10)
[2022-11-01] MEDS: InsuLIN REG 1unit/0.01ml Soln (100units/ml) SC SCH ×4 (06:30→23:34)
[2022-11-01] MEDS: HEPARIN SODIUM (PORCINE) 5000 UNITS/ML 1ML VIAL SC SCH ×3 (06:30→22:14)
[2022-11-01 06:34] LABS: Potassium 5.7 mmol/L (3.5-5.1)
[2022-11-01] MEDS ORDERED: SODIUM CHL 0.9% 1000 ML BAG XX ONE (07:00)
[2022-11-01] MEDS: METOPROLOL TARTRATE 25 MG TAB PO SCH ×2 (07:34→23:00)
[2022-11-01] MEDS: RANOLAZINE ER 500 MG TAB PO SCH ×2 (07:38→22:00)
[2022-11-01] MEDS: PANTOPRAZOLE 40 MG/10 ML VIAL INJ IV SCH (07:43)
[2022-11-01] MEDS: VALPROATE INJ 500 MG in SODIUM CHL 0.9% 100 ML IV SCH ×2 (07:44→22:09)
[2022-11-01] MEDS: MUPIROCIN 2% OINT 15gm or 22gm FOR MRSA NARES TOP SCH (07:49)
[2022-11-01] MEDS ORDERED: LIDOCAINE 2% JELLY 11ml (GLYDO) ONE (09:05)
[2022-11-01] MEDS ORDERED: LIDOCAINE 2%HCL (LOCAL ANESTH.) INJ 20ML MDV ONE (09:06)
[2022-11-01] MEDS ORDERED: EPINEPHrine HCL 1 MG/1 ML AMP ONE (09:06)
[2022-11-01] MEDS ORDERED: GLYCOPYRROLATE 0.2 MG/ML 1ML VIAL ONE (09:07)
[2022-11-01 09:46] LABS: Band Neutrophils % (manual) 4; Lymphocytes % (manual) 2 (10.0-50.0); Metamyelocytes % 3; Monocytes % (manual) 2 (0-12); Promyelocytes % 2
[2022-11-01] MEDS ORDERED: SODIUM ZIRCONIUM CYCL 10 GM PAK PO ONE (10:00)
[2022-11-01] MEDS: fentaNYL Drip 2500mCg/250mlNS 250 ML IV SCH (12:37)
[2022-11-01] MEDS: NOREPINEPHRINE 8 MG/250ML KIT 250 ML IV SCH (17:01)
[2022-11-01] MEDS ORDERED: EPOETIN ALFA-EPBX 10,000 UNIT/1ML VIAL SC ONE (21:00)
[2022-11-01] MEDS: ATORVASTATIN 20 MG TAB PO SCH (22:07)
[2022-11-02] VITALS (96 sets, daily range): BP systolic 76–157; BP diastolic 19–83
[2022-11-02] MEDS ORDERED: LORazepam 2MG/ML-1ML VIAL IV ONE (02:45)
[2022-11-02] MEDS: fentaNYL Drip 2500mCg/250mlNS 250 ML IV SCH (03:36)
[2022-11-02] MEDS: MIDAZOLAM DRIP 50 mg/50mL 50 ML IV SCH ×2 (03:36→21:15)
[2022-11-02] MEDS: SODIUM CHLOR 0.9% PF (SALINE LOCK) 10ML VIAL/SYR IV SCH ×3 (04:47→21:43)
[2022-11-02] MEDS: BUMETANIDE 2.5mg/10ml (0.25 mg/ml) INJ IV SCH ×2 (05:53→18:00)
[2022-11-02] MEDS: HEPARIN SODIUM (PORCINE) 5000 UNITS/ML 1ML VIAL SC SCH ×3 (05:55→21:52)
[2022-11-02] MEDS: LACTULOSE 20Gm/30ML SOLN PO SCH ×3 (05:56→21:44)
[2022-11-02] MEDS: LEVOTHYROXINE SODIUM 100 MCG TAB PO SCH (05:56)
[2022-11-02] MEDS: methylPREDNISolone SOD SUCC 40 MG/ML VL IV SCH ×3 (05:57→21:44)
[2022-11-02 06:01] LABS: Basophils # (auto) 0.1 10 ^3/uL (0-0.2); Basophils % (auto) 0.2 % (0.0-2.0); Eosinophils # (auto) 0.1 10 ^3/uL (0-0.8); Eosinophils % (auto) 0.3 % (0.0-7.0); Hematocrit 29.9 % (36.0-46.0); Hemoglobin 10.1 g/dL (12.2-16.2); Lymphocytes # (auto) 0.4 10 ^3/uL (0.4-5.4); Lymphocytes % (auto) 1.5 % (10.0-50.0); Mean Corpuscular Hemoglobin 31.7 pg (28.0-32.0); Mean Corpuscular Hgb Conc. 33.7 g/dL (32.0-36.0); Monocytes # (auto) 1.8 10 ^3/uL (0-1.3); Monocytes % (auto) 7.2 % (0.0-12.0); Neutrophils # (auto) 23.1 10 ^3/uL (1.6-8.6); Neutrophils % (auto) 90.8 % (37.0-80.0); Nucleated Red Blood Cells % 0.1 %; Red Blood Cells 3.18 10^6/uL (4.0-5.20); Red Cell Distribution Width 17.3 % (11.8-14.3)
[2022-11-02 06:28] LABS: Albumin 3.6 g/dL (3.4-5.0); BUN/Creatinine Ratio 15.3 (10.0-20.0); Bilirubin, Total 0.4 mg/dL (0.2-1.0); Calcium 9.8 mg/dL (8.5-10.1); Total Protein 6.7 g/dL (6.4-8.2)
[2022-11-02] MEDS: ALBUTEROL SULF 2.5 MG/0.5ML(0.5%) NEB SOLN NEB SCH ×4 (06:57→23:00)
[2022-11-02] MEDS: ACETYLCYSTEINE 20%(200MG/ML) SOL 4ML NEB SCH ×2 (06:57→22:01)
[2022-11-02] MEDS: IPRATROPIUM BROM 0.5 MG/2.5ML INH SOL NEB SCH ×4 (06:57→23:00)
[2022-11-02] MEDS: InsuLIN REG 1unit/0.01ml Soln (100units/ml) SC SCH ×4 (07:00→21:56)
[2022-11-02] MEDS: ACCU-CHEK COMFORT CURVE STRIP VI SCH ×4 (07:11→22:00)
[2022-11-02 07:13] LABS: White Blood Cell 25.4 10^3/uL (4.4-10.8)
[2022-11-02] MEDS: VALPROATE INJ 500 MG in SODIUM CHL 0.9% 100 ML IV SCH ×2 (09:24→21:43)
[2022-11-02] MEDS: METOPROLOL TARTRATE 25 MG TAB PO SCH ×2 (09:25→21:44)
[2022-11-02] MEDS: RANOLAZINE ER 500 MG TAB PO SCH ×2 (09:25→21:45)
[2022-11-02] MEDS: PANTOPRAZOLE 40 MG/10 ML VIAL INJ IV SCH (09:25)
[2022-11-02] MEDS: ACETAMINOPHEN 325 MG TAB PO PRN (16:08)
[2022-11-02] MEDS: NOREPINEPHRINE 8 MG/250ML KIT 250 ML IV SCH (19:00)
[2022-11-02] MEDS: ATORVASTATIN 20 MG TAB PO SCH (21:00)
[2022-11-03] VITALS (104 sets, daily range): BP systolic 81–172; BP diastolic 4–69
[2022-11-03] MEDS: ALBUTEROL SULF 2.5 MG/0.5ML(0.5%) NEB SOLN NEB SCH ×5 (06:00→22:34)
[2022-11-03] MEDS: IPRATROPIUM BROM 0.5 MG/2.5ML INH SOL NEB SCH ×5 (06:00→22:34)
[2022-11-03] MEDS: BUMETANIDE 2.5mg/10ml (0.25 mg/ml) INJ IV SCH ×2 (06:00→17:51)
[2022-11-03] MEDS: ACETYLCYSTEINE 20%(200MG/ML) SOL 4ML NEB SCH ×2 (06:01→22:35)
[2022-11-03 06:08] LABS: Hematocrit 28.1 % (36.0-46.0); Hemoglobin 9.3 g/dL (12.2-16.2); Mean Corpuscular Hemoglobin 31.7 pg (28.0-32.0); Mean Corpuscular Hgb Conc. 33.2 g/dL (32.0-36.0); Mean Corpuscular Volume 95.5 fL (80.0-100.0); Red Blood Cells 2.94 10^6/uL (4.0-5.20); Red Cell Distribution Width 17.4 % (11.8-14.3); White Blood Cell 23.7 10^3/uL (4.4-10.8)
[2022-11-03] MEDS: SODIUM CHLOR 0.9% PF (SALINE LOCK) 10ML VIAL/SYR IV SCH ×3 (06:19→21:20)
[2022-11-03] MEDS: methylPREDNISolone SOD SUCC 40 MG/ML VL IV SCH ×3 (06:19→21:34)
[2022-11-03] MEDS: LACTULOSE 20Gm/30ML SOLN PO SCH ×3 (06:19→21:34)
[2022-11-03] MEDS: HEPARIN SODIUM (PORCINE) 5000 UNITS/ML 1ML VIAL SC SCH ×3 (06:20→21:35)
[2022-11-03] MEDS: InsuLIN REG 1unit/0.01ml Soln (100units/ml) SC SCH ×4 (06:20→21:53)
[2022-11-03] MEDS: ACCU-CHEK COMFORT CURVE STRIP VI SCH ×4 (06:21→22:01)
[2022-11-03] MEDS: LEVOTHYROXINE SODIUM 100 MCG TAB PO SCH (06:21)
[2022-11-03 06:23] LABS: Basophils % (manual) 0 (0.0-2.0); Blast Cells 0; Eosinophils % (manual) 0 (0-7); Metamyelocytes % 0; Myelocytes % 0; Promyelocytes % 0; Reactive Lymphocytes 0
[2022-11-03 06:28] LABS: BUN/Creatinine Ratio 17.3 (10.0-20.0); Calcium 10.1 mg/dL (8.5-10.1); Potassium 4.4 mmol/L (3.5-5.1)
[2022-11-03] MEDS ORDERED: SODIUM CHL 0.9% 1000 ML BAG XX ONE (07:00)
[2022-11-03 08:57] LABS: Band Neutrophils % (manual) 6; Lymphocytes % (manual) 2 (10.0-50.0); Monocytes % (manual) 5 (0-12)
[2022-11-03] MEDS: METOPROLOL TARTRATE 25 MG TAB PO SCH ×2 (09:32→21:35)
[2022-11-03] MEDS: VALPROATE INJ 500 MG in SODIUM CHL 0.9% 100 ML IV SCH (09:40)
[2022-11-03] MEDS: PANTOPRAZOLE 40 MG/10 ML VIAL INJ IV SCH (09:40)
[2022-11-03] MEDS: RANOLAZINE ER 500 MG TAB PO SCH ×2 (09:40→21:21)
[2022-11-03] MEDS: MIDAZOLAM DRIP 50 mg/50mL 50 ML IV SCH ×2 (09:55→20:35)
[2022-11-03] MEDS: fentaNYL Drip 2500mCg/250mlNS 250 ML IV SCH (12:30)
[2022-11-03] MEDS: NOREPINEPHRINE 8 MG/250ML KIT 250 ML IV SCH ×2 (19:00→20:36)
[2022-11-03] MEDS: ATORVASTATIN 20 MG TAB PO SCH (21:00)
[2022-11-03] MEDS ORDERED: EPOETIN ALFA-EPBX 10,000 UNIT/1ML VIAL SC ONE (21:00)
[2022-11-04] VITALS (106 sets, daily range): BP systolic 80–166; BP diastolic 30–59
[2022-11-04] MEDS: BUMETANIDE 2.5mg/10ml (0.25 mg/ml) INJ IV SCH ×2 (06:00→17:27)
[2022-11-04] MEDS: SODIUM CHLOR 0.9% PF (SALINE LOCK) 10ML VIAL/SYR IV SCH ×3 (06:20→21:37)
[2022-11-04] MEDS: LEVOTHYROXINE SODIUM 100 MCG TAB PO SCH (06:21)
[2022-11-04] MEDS: methylPREDNISolone SOD SUCC 40 MG/ML VL IV SCH ×3 (06:21→21:38)
[2022-11-04] MEDS: LACTULOSE 20Gm/30ML SOLN PO SCH ×3 (06:21→21:38)
[2022-11-04] MEDS: InsuLIN REG 1unit/0.01ml Soln (100units/ml) SC SCH ×4 (06:22→22:13)
[2022-11-04] MEDS: ACCU-CHEK COMFORT CURVE STRIP VI SCH ×4 (06:22→22:13)
[2022-11-04] MEDS: HEPARIN SODIUM (PORCINE) 5000 UNITS/ML 1ML VIAL SC SCH ×3 (06:23→21:40)
[2022-11-04] MEDS: ACETYLCYSTEINE 20%(200MG/ML) SOL 4ML NEB SCH ×3 (06:35→22:35)
[2022-11-04] MEDS: ALBUTEROL SULF 2.5 MG/0.5ML(0.5%) NEB SOLN NEB SCH ×5 (06:35→22:34)
[2022-11-04] MEDS: IPRATROPIUM BROM 0.5 MG/2.5ML INH SOL NEB SCH ×5 (06:35→22:35)
[2022-11-04] MEDS: METOPROLOL TARTRATE 25 MG TAB PO SCH ×2 (09:10→21:38)
[2022-11-04] MEDS: RANOLAZINE ER 500 MG TAB PO SCH ×2 (09:11→21:39)
[2022-11-04] MEDS: PANTOPRAZOLE 40 MG/10 ML VIAL INJ IV SCH (11:23)
[2022-11-04] MEDS: fentaNYL Drip 2500mCg/250mlNS 250 ML IV SCH ×2 (12:30→17:30)
[2022-11-04] MEDS: MIDAZOLAM DRIP 50 mg/50mL 50 ML IV SCH (17:28)
[2022-11-04] MEDS: ATORVASTATIN 20 MG TAB PO SCH (21:37)
[2022-11-05] VITALS (119 sets, daily range): BP systolic 83–165; BP diastolic 29–91
[2022-11-05] MEDS: MIDAZOLAM DRIP 50 mg/50mL 50 ML IV SCH ×2 (03:58→21:48)
[2022-11-05] MEDS: HEPARIN SODIUM (PORCINE) 5000 UNITS/ML 1ML VIAL SC SCH ×3 (06:00→21:55)
[2022-11-05] MEDS: InsuLIN REG 1unit/0.01ml Soln (100units/ml) SC SCH ×4 (06:31→21:55)
[2022-11-05] MEDS: SODIUM CHLOR 0.9% PF (SALINE LOCK) 10ML VIAL/SYR IV SCH ×3 (06:32→21:54)
[2022-11-05] MEDS: BUMETANIDE 2.5mg/10ml (0.25 mg/ml) INJ IV SCH ×2 (06:32→17:20)
[2022-11-05] MEDS: methylPREDNISolone SOD SUCC 40 MG/ML VL IV SCH ×2 (06:33→13:41)
[2022-11-05] MEDS: LEVOTHYROXINE SODIUM 100 MCG TAB PO SCH (06:33)
[2022-11-05] MEDS: LACTULOSE 20Gm/30ML SOLN PO SCH ×3 (06:33→21:54)
[2022-11-05] MEDS: ACCU-CHEK COMFORT CURVE STRIP VI SCH ×4 (06:34→21:55)
[2022-11-05] MEDS: ALBUTEROL SULF 2.5 MG/0.5ML(0.5%) NEB SOLN NEB SCH ×5 (06:34→22:25)
[2022-11-05] MEDS: IPRATROPIUM BROM 0.5 MG/2.5ML INH SOL NEB SCH ×5 (06:35→22:26)
[2022-11-05] MEDS: ACETYLCYSTEINE 20%(200MG/ML) SOL 4ML NEB SCH ×3 (06:35→22:25)
[2022-11-05] MEDS ORDERED: SODIUM CHL 0.9% 1000 ML BAG XX ONE (07:00)
[2022-11-05 07:17] LABS: Hematocrit 28.6 % (36.0-46.0); Hemoglobin 9.7 g/dL (12.2-16.2); Mean Corpuscular Hemoglobin 31.5 pg (28.0-32.0); Mean Corpuscular Hgb Conc. 33.8 g/dL (32.0-36.0); Mean Corpuscular Volume 93.4 fL (80.0-100.0); Red Blood Cells 3.06 10^6/uL (4.0-5.20); Red Cell Distribution Width 17.4 % (11.8-14.3); White Blood Cell 22.9 10^3/uL (4.4-10.8)
[2022-11-05 07:20] LABS: Basophils % (manual) 0 (0.0-2.0); Blast Cells 0; Eosinophils % (manual) 0 (0-7); Promyelocytes % 0; Reactive Lymphocytes 0
[2022-11-05 07:26] LABS: Calcium 9.5 mg/dL (8.5-10.1); Potassium 3.8 mmol/L (3.5-5.1)
[2022-11-05] MEDS: ALBUMIN 25% 100 ML IV PRN ×2 (08:24→09:02)
[2022-11-05 09:31] LABS: Band Neutrophils % (manual) 6; Lymphocytes % (manual) 4 (10.0-50.0); Metamyelocytes % 1; Monocytes % (manual) 3 (0-12); Myelocytes % 1
[2022-11-05] MEDS: METOPROLOL TARTRATE 25 MG TAB PO SCH ×2 (10:00→21:54)
[2022-11-05] MEDS: PANTOPRAZOLE 40 MG/10 ML VIAL INJ IV SCH (10:58)
[2022-11-05] MEDS: RANOLAZINE ER 500 MG TAB PO SCH ×2 (10:58→21:55)
[2022-11-05] MEDS: NOREPINEPHRINE 8 MG/250ML KIT 250 ML IV SCH (19:00)
[2022-11-05] MEDS ORDERED: EPOETIN ALFA-EPBX 10,000 UNIT/1ML VIAL SC ONE (21:00)
[2022-11-05] MEDS: ATORVASTATIN 20 MG TAB PO SCH (21:53)
[2022-11-05] MEDS: IPRATROPIUM BROM 0.5 MG/2.5ML INH SOL NEB PRN (22:26)
[2022-11-05] MEDS ORDERED: LORazepam 2MG/ML-1ML VIAL IV PRN (22:45)
[2022-11-05] MEDS: fentaNYL Drip 2500mCg/250mlNS 250 ML IV SCH (23:00)
[2022-11-06] VITALS (102 sets, daily range): BP systolic 89–144; BP diastolic 22–66
[2022-11-06] MEDS: HEPARIN SODIUM (PORCINE) 5000 UNITS/ML 1ML VIAL SC SCH ×3 (06:00→22:39)
[2022-11-06] MEDS: LACTULOSE 20Gm/30ML SOLN PO SCH ×3 (06:00→22:39)
[2022-11-06] MEDS: SODIUM CHLOR 0.9% PF (SALINE LOCK) 10ML VIAL/SYR IV SCH ×3 (06:03→22:39)
[2022-11-06] MEDS: BUMETANIDE 2.5mg/10ml (0.25 mg/ml) INJ IV SCH ×2 (06:03→18:03)
[2022-11-06] MEDS: IPRATROPIUM BROM 0.5 MG/2.5ML INH SOL NEB SCH ×5 (06:05→21:26)
[2022-11-06] MEDS: ACETYLCYSTEINE 20%(200MG/ML) SOL 4ML NEB SCH ×3 (06:05→21:27)
[2022-11-06] MEDS: ALBUTEROL SULF 2.5 MG/0.5ML(0.5%) NEB SOLN NEB SCH ×5 (06:05→21:26)
[2022-11-06] MEDS: LEVOTHYROXINE SODIUM 100 MCG TAB PO SCH (06:39)
[2022-11-06] MEDS: ACCU-CHEK COMFORT CURVE STRIP VI SCH ×4 (06:40→23:23)
[2022-11-06] MEDS: InsuLIN REG 1unit/0.01ml Soln (100units/ml) SC SCH ×4 (06:40→23:23)
[2022-11-06] MEDS ORDERED: Nepro With Carb Steady 1 Liter Bottle GT SCH (09:15)
[2022-11-06] MEDS: PANTOPRAZOLE 40 MG/10 ML VIAL INJ IV SCH (10:30)
[2022-11-06] MEDS: RANOLAZINE ER 500 MG TAB PO SCH ×2 (10:30→22:40)
[2022-11-06] MEDS: VALPROATE INJ 500 MG in SODIUM CHL 0.9% 100 ML IV SCH ×2 (10:33→22:40)
[2022-11-06] MEDS: METOPROLOL TARTRATE 25 MG TAB PO SCH ×2 (10:34→22:41)
[2022-11-06] MEDS ORDERED: METOCLOPRAMIDE 10 mg/10ml ORAL soln GT PRN (12:30)
[2022-11-06] MEDS: METOCLOPRAMIDE 10 mg/10ml ORAL soln GT SCH ×2 (15:04→22:00)
[2022-11-06] MEDS: NOREPINEPHRINE 8 MG/250ML KIT 250 ML IV SCH (19:00)
[2022-11-06] MEDS: ATORVASTATIN 20 MG TAB PO SCH (21:47)
[2022-11-07] VITALS (99 sets, daily range): BP systolic 88–190; BP diastolic 30–79
[2022-11-07 05:16] LABS: Hematocrit 29.6 % (36.0-46.0); Hemoglobin 9.8 g/dL (12.2-16.2); Mean Corpuscular Hemoglobin 32.1 pg (28.0-32.0); Mean Corpuscular Volume 97.2 fL (80.0-100.0); Red Blood Cells 3.05 10^6/uL (4.0-5.20); Red Cell Distribution Width 17.7 % (11.8-14.3); White Blood Cell 25.5 10^3/uL (4.4-10.8)
[2022-11-07 05:24] LABS: Albumin 3.4 g/dL (3.4-5.0); Calcium 8.9 mg/dL (8.5-10.1); Potassium 3.9 mmol/L (3.5-5.1)
[2022-11-07 05:27] LABS: Basophils % (manual) 0 (0.0-2.0); Blast Cells 0; Eosinophils % (manual) 0 (0-7); Metamyelocytes % 0; Myelocytes % 0; Promyelocytes % 0; Reactive Lymphocytes 0
[2022-11-07 05:28] LABS: BUN/Creatinine Ratio 18.1 (10.0-20.0); Bilirubin, Total 0.4 mg/dL (0.2-1.0); Total Protein 5.6 g/dL (6.4-8.2)
[2022-11-07] MEDS: ALBUTEROL SULF 2.5 MG/0.5ML(0.5%) NEB SOLN NEB SCH ×5 (05:49→22:35)
[2022-11-07] MEDS: ACETYLCYSTEINE 20%(200MG/ML) SOL 4ML NEB SCH ×3 (05:49→22:35)
[2022-11-07] MEDS: IPRATROPIUM BROM 0.5 MG/2.5ML INH SOL NEB SCH ×5 (05:49→22:34)
[2022-11-07] MEDS: LEVOTHYROXINE SODIUM 100 MCG TAB PO SCH (06:46)
[2022-11-07] MEDS: SODIUM CHLOR 0.9% PF (SALINE LOCK) 10ML VIAL/SYR IV SCH ×3 (06:46→21:30)
[2022-11-07] MEDS: LACTULOSE 20Gm/30ML SOLN PO SCH ×3 (06:46→21:31)
[2022-11-07] MEDS: ACCU-CHEK COMFORT CURVE STRIP VI SCH ×4 (06:46→21:31)
[2022-11-07] MEDS: HEPARIN SODIUM (PORCINE) 5000 UNITS/ML 1ML VIAL SC SCH ×3 (06:54→21:34)
[2022-11-07] MEDS: InsuLIN REG 1unit/0.01ml Soln (100units/ml) SC SCH ×4 (06:55→21:34)
[2022-11-07] MEDS: METOCLOPRAMIDE 10 mg/10ml ORAL soln GT SCH ×3 (08:03→21:31)
[2022-11-07] MEDS: BUMETANIDE 2.5mg/10ml (0.25 mg/ml) INJ IV SCH ×2 (09:33→17:50)
[2022-11-07] MEDS: PANTOPRAZOLE 40 MG/10 ML VIAL INJ IV SCH (09:34)
[2022-11-07] MEDS: METOPROLOL TARTRATE 25 MG TAB PO SCH ×2 (09:35→21:30)
[2022-11-07] MEDS: RANOLAZINE ER 500 MG TAB PO SCH ×2 (09:56→21:31)
[2022-11-07] MEDS: VALPROATE INJ 500 MG in SODIUM CHL 0.9% 100 ML IV SCH ×2 (09:59→21:30)
[2022-11-07 11:09] LABS: Band Neutrophils % (manual) 2; Lymphocytes % (manual) 5 (10.0-50.0); Monocytes % (manual) 3 (0-12)
[2022-11-07] MEDS: MIDAZOLAM DRIP 50 mg/50mL 50 ML IV SCH (12:30)
[2022-11-07] MEDS: fentaNYL Drip 2500mCg/250mlNS 250 ML IV SCH (12:30)
[2022-11-07] MEDS: NOREPINEPHRINE 8 MG/250ML KIT 250 ML IV SCH (19:00)
[2022-11-07] MEDS: ATORVASTATIN 20 MG TAB PO SCH (21:27)
[2022-11-08] VITALS (110 sets, daily range): BP systolic 59–209; BP diastolic 15–100
[2022-11-08] MEDS: IPRATROPIUM BROM 0.5 MG/2.5ML INH SOL NEB SCH ×5 (06:32→22:06)
[2022-11-08] MEDS: ALBUTEROL SULF 2.5 MG/0.5ML(0.5%) NEB SOLN NEB SCH ×5 (06:32→22:06)
[2022-11-08] MEDS: ACETYLCYSTEINE 20%(200MG/ML) SOL 4ML NEB SCH ×3 (06:32→22:07)
[2022-11-08] MEDS: LEVOTHYROXINE SODIUM 100 MCG TAB PO SCH (06:38)
[2022-11-08] MEDS: LACTULOSE 20Gm/30ML SOLN PO SCH ×3 (06:38→22:00)
[2022-11-08] MEDS: METOCLOPRAMIDE 10 mg/10ml ORAL soln GT SCH ×3 (06:38→22:15)
[2022-11-08] MEDS: SODIUM CHLOR 0.9% PF (SALINE LOCK) 10ML VIAL/SYR IV SCH ×3 (06:39→22:14)
[2022-11-08] MEDS: InsuLIN REG 1unit/0.01ml Soln (100units/ml) SC SCH ×3 (06:39→18:20)
[2022-11-08] MEDS: ACCU-CHEK COMFORT CURVE STRIP VI SCH ×3 (06:39→18:20)
[2022-11-08] MEDS: BUMETANIDE 2.5mg/10ml (0.25 mg/ml) INJ IV SCH ×2 (06:42→18:40)
[2022-11-08] MEDS: HEPARIN SODIUM (PORCINE) 5000 UNITS/ML 1ML VIAL SC SCH ×3 (06:43→22:15)
[2022-11-08] MEDS ORDERED: SODIUM CHL 0.9% 1000 ML BAG XX ONE (07:00)
[2022-11-08] MEDS ORDERED: DEXTROSE (50%) 50ML SYRG IV PRN (07:45)
[2022-11-08 09:31] LABS: Hematocrit 31.5 % (36.0-46.0); Hemoglobin 10.2 g/dL (12.2-16.2)
[2022-11-08 09:34] LABS: Mean Corpuscular Hemoglobin 31.6 pg (28.0-32.0); Mean Corpuscular Hgb Conc. 32.4 g/dL (32.0-36.0); Mean Corpuscular Volume 97.5 fL (80.0-100.0); Red Blood Cells 3.23 10^6/uL (4.0-5.20); Red Cell Distribution Width 18.9 % (11.8-14.3); White Blood Cell 29.8 10^3/uL (4.4-10.8)
[2022-11-08 09:44] LABS: Basophils % (manual) 0 (0.0-2.0); Blast Cells 0; Lymphocytes % (manual) 0 (10.0-50.0); Metamyelocytes % 0; Myelocytes % 0; Promyelocytes % 0; Reactive Lymphocytes 0
[2022-11-08] MEDS: METOPROLOL TARTRATE 25 MG TAB PO SCH ×2 (09:53→22:14)
[2022-11-08] MEDS: PANTOPRAZOLE 40 MG/10 ML VIAL INJ IV SCH (09:53)
[2022-11-08] MEDS: RANOLAZINE ER 500 MG TAB PO SCH ×2 (09:53→22:00)
[2022-11-08 10:16] LABS: Calcium 9.2 mg/dL (8.5-10.1); Potassium 3.9 mmol/L (3.5-5.1)
[2022-11-08 10:19] LABS: BUN/Creatinine Ratio 19.3 (10.0-20.0)
[2022-11-08] MEDS: ALBUMIN 25% 100 ML IV PRN (10:30)
[2022-11-08] MEDS: MIDAZOLAM DRIP 50 mg/50mL 50 ML IV SCH (12:30)
[2022-11-08 12:44] LABS: Band Neutrophils % (manual) 6; Eosinophils % (manual) 2 (0-7); Monocytes % (manual) 1 (0-12)
[2022-11-08] MEDS: fentaNYL Drip 2500mCg/250mlNS 250 ML IV SCH (13:00)
[2022-11-08] MEDS: VALPROATE INJ 500 MG in SODIUM CHL 0.9% 100 ML IV SCH ×2 (14:58→22:14)
[2022-11-08] MEDS: ATORVASTATIN 20 MG TAB PO SCH (20:55)
[2022-11-08] MEDS ORDERED: EPOETIN ALFA-EPBX 10,000 UNIT/1ML VIAL SC ONE (21:00)
[2022-11-08] MEDS: NOREPINEPHRINE 8 MG/250ML KIT 250 ML IV SCH (21:16)
[2022-11-08 22:21] LABS: BUN/Creatinine Ratio 16.1 (10.0-20.0)
[2022-11-09] VITALS (86 sets, daily range): BP systolic 78–198; BP diastolic 21–64
[2022-11-09] MEDS: InsuLIN REG 1unit/0.01ml Soln (100units/ml) SC SCH ×4 (00:55→18:00)
[2022-11-09] MEDS: ACCU-CHEK COMFORT CURVE STRIP VI SCH ×4 (00:55→18:18)
[2022-11-09] MEDS: LACTULOSE 20Gm/30ML SOLN PO SCH ×3 (06:00→22:00)
[2022-11-09] MEDS: SODIUM CHLOR 0.9% PF (SALINE LOCK) 10ML VIAL/SYR IV SCH ×3 (06:24→22:26)
[2022-11-09] MEDS: LEVOTHYROXINE SODIUM 100 MCG TAB PO SCH (06:26)
[2022-11-09] MEDS: METOCLOPRAMIDE 10 mg/10ml ORAL soln GT SCH ×3 (06:26→22:27)
[2022-11-09] MEDS: HEPARIN SODIUM (PORCINE) 5000 UNITS/ML 1ML VIAL SC SCH ×3 (06:26→23:40)
[2022-11-09] MEDS: IPRATROPIUM BROM 0.5 MG/2.5ML INH SOL NEB SCH ×5 (06:34→22:34)
[2022-11-09] MEDS: ALBUTEROL SULF 2.5 MG/0.5ML(0.5%) NEB SOLN NEB SCH ×5 (06:34→22:34)
[2022-11-09] MEDS: ACETYLCYSTEINE 20%(200MG/ML) SOL 4ML NEB SCH ×3 (06:34→22:35)
[2022-11-09] MEDS: BUMETANIDE 2.5mg/10ml (0.25 mg/ml) INJ IV SCH ×2 (07:43→18:14)
[2022-11-09] MEDS: fentaNYL Drip 2500mCg/250mlNS 250 ML IV SCH (07:59)
[2022-11-09] MEDS: PANTOPRAZOLE 40 MG/10 ML VIAL INJ IV SCH (09:29)
[2022-11-09] MEDS: RANOLAZINE ER 500 MG TAB PO SCH ×2 (09:29→22:00)
[2022-11-09] MEDS: METOPROLOL TARTRATE 25 MG TAB PO SCH ×2 (09:30→22:25)
[2022-11-09] MEDS: VALPROATE INJ 500 MG in SODIUM CHL 0.9% 100 ML IV SCH ×2 (09:32→22:28)
[2022-11-09] MEDS: MIDAZOLAM DRIP 50 mg/50mL 50 ML IV SCH (12:30)
[2022-11-09] MEDS: ATORVASTATIN 20 MG TAB PO SCH (22:25)
[2022-11-10] VITALS (99 sets, daily range): BP systolic 89–160; BP diastolic 29–77
[2022-11-10] MEDS: ACCU-CHEK COMFORT CURVE STRIP VI SCH ×4 (00:24→18:14)
[2022-11-10] MEDS: BUMETANIDE 2.5mg/10ml (0.25 mg/ml) INJ IV SCH ×2 (05:58→18:01)
[2022-11-10] MEDS: METOCLOPRAMIDE 10 mg/10ml ORAL soln GT SCH ×3 (05:59→21:50)
[2022-11-10] MEDS: fentaNYL Drip 2500mCg/250mlNS 250 ML IV SCH (06:00)
[2022-11-10] MEDS: HEPARIN SODIUM (PORCINE) 5000 UNITS/ML 1ML VIAL SC SCH ×3 (06:00→21:49)
[2022-11-10] MEDS: InsuLIN REG 1unit/0.01ml Soln (100units/ml) SC SCH ×4 (06:00→18:00)
[2022-11-10] MEDS: LACTULOSE 20Gm/30ML SOLN PO SCH ×3 (06:01→21:49)
[2022-11-10] MEDS: SODIUM CHLOR 0.9% PF (SALINE LOCK) 10ML VIAL/SYR IV SCH ×3 (06:01→21:50)
[2022-11-10 06:38] LABS: Hematocrit 27.7 % (36.0-46.0); Hemoglobin 9.2 g/dL (12.2-16.2)
[2022-11-10] MEDS: LEVOTHYROXINE SODIUM 100 MCG TAB PO SCH (06:40)
[2022-11-10] MEDS: ACETYLCYSTEINE 20%(200MG/ML) SOL 4ML NEB SCH ×2 (06:48→22:29)
[2022-11-10] MEDS: ALBUTEROL SULF 2.5 MG/0.5ML(0.5%) NEB SOLN NEB SCH ×5 (06:48→22:29)
[2022-11-10] MEDS: IPRATROPIUM BROM 0.5 MG/2.5ML INH SOL NEB SCH ×5 (06:48→22:29)
[2022-11-10] MEDS ORDERED: SODIUM CHL 0.9% 1000 ML BAG XX ONE (07:00)
[2022-11-10] MEDS: RANOLAZINE ER 500 MG TAB PO SCH ×2 (10:00→21:49)
[2022-11-10] MEDS: PANTOPRAZOLE 40 MG/10 ML VIAL INJ IV SCH (11:00)
[2022-11-10] MEDS: VALPROATE INJ 500 MG in SODIUM CHL 0.9% 100 ML IV SCH ×2 (11:00→22:30)
[2022-11-10] MEDS: METOPROLOL TARTRATE 25 MG TAB PO SCH ×2 (11:01→21:49)
[2022-11-10] MEDS: MIDAZOLAM DRIP 50 mg/50mL 50 ML IV SCH (12:30)
[2022-11-10] MEDS: NOREPINEPHRINE 8 MG/250ML KIT 250 ML IV SCH ×2 (19:00→22:32)
[2022-11-10] MEDS ORDERED: EPOETIN ALFA-EPBX 10,000 UNIT/1ML VIAL SC ONE (21:00)
[2022-11-10] MEDS: ATORVASTATIN 20 MG TAB PO SCH (21:48)
[2022-11-11] VITALS (78 sets, daily range): BP systolic 76–149; BP diastolic 22–84
[2022-11-11] MEDS: ACCU-CHEK COMFORT CURVE STRIP VI SCH ×4 (00:10→18:00)
[2022-11-11] MEDS: SODIUM CHLOR 0.9% PF (SALINE LOCK) 10ML VIAL/SYR IV SCH ×3 (05:31→22:00)
[2022-11-11] MEDS: LACTULOSE 20Gm/30ML SOLN PO SCH ×3 (05:31→22:00)
[2022-11-11] MEDS: BUMETANIDE 2.5mg/10ml (0.25 mg/ml) INJ IV SCH ×2 (05:31→17:00)
[2022-11-11] MEDS: METOCLOPRAMIDE 10 mg/10ml ORAL soln GT SCH ×3 (05:31→22:00)
[2022-11-11] MEDS: InsuLIN REG 1unit/0.01ml Soln (100units/ml) SC SCH ×3 (05:40→11:04)
[2022-11-11] MEDS: ALBUTEROL SULF 2.5 MG/0.5ML(0.5%) NEB SOLN NEB SCH ×3 (06:00→14:00)
[2022-11-11] MEDS: HEPARIN SODIUM (PORCINE) 5000 UNITS/ML 1ML VIAL SC SCH ×3 (06:00→22:00)
[2022-11-11] MEDS: IPRATROPIUM BROM 0.5 MG/2.5ML INH SOL NEB SCH ×3 (06:35→14:00)
[2022-11-11] MEDS: ACETYLCYSTEINE 20%(200MG/ML) SOL 4ML NEB SCH ×2 (06:35→14:00)
[2022-11-11] MEDS: LEVOTHYROXINE SODIUM 100 MCG TAB PO SCH (07:00)
[2022-11-11] MEDS ORDERED: SODIUM CHL 0.9% 1000 ML BAG XX ONE (07:00)
[2022-11-11] MEDS: fentaNYL Drip 2500mCg/250mlNS 250 ML IV SCH (07:32)
[2022-11-11 08:30] LABS: Basophils # (auto) 0.1 10 ^3/uL (0-0.2); Basophils % (auto) 0.3 % (0.0-2.0); Eosinophils # (auto) 0.8 10 ^3/uL (0-0.8); Eosinophils % (auto) 3.9 % (0.0-7.0); Hematocrit 29.1 % (36.0-46.0); Hemoglobin 9.5 g/dL (12.2-16.2); Lymphocytes # (auto) 0.3 10 ^3/uL (0.4-5.4); Lymphocytes % (auto) 1.5 % (10.0-50.0); Mean Corpuscular Hemoglobin 32.1 pg (28.0-32.0); Mean Corpuscular Hgb Conc. 32.5 g/dL (32.0-36.0); Mean Corpuscular Volume 98.8 fL (80.0-100.0); Monocytes # (auto) 1.6 10 ^3/uL (0-1.3); Monocytes % (auto) 7.3 % (0.0-12.0); Neutrophils # (auto) 18.7 10 ^3/uL (1.6-8.6); Red Blood Cells 2.94 10^6/uL (4.0-5.20); Red Cell Distribution Width 18.8 % (11.8-14.3); White Blood Cell 21.5 10^3/uL (4.4-10.8)
[2022-11-11 08:50] LABS: BUN/Creatinine Ratio 18.7 (10.0-20.0); Calcium 9.8 mg/dL (8.5-10.1); Potassium 4.5 mmol/L (3.5-5.1)
[2022-11-11] MEDS: RANOLAZINE ER 500 MG TAB PO SCH ×2 (10:00→22:00)
[2022-11-11] MEDS: PANTOPRAZOLE 40 MG/10 ML VIAL INJ IV SCH (10:43)
[2022-11-11] MEDS: VALPROATE INJ 500 MG in SODIUM CHL 0.9% 100 ML IV SCH ×2 (10:43→22:00)
[2022-11-11] MEDS: METOPROLOL TARTRATE 25 MG TAB PO SCH ×2 (10:43→22:00)
[2022-11-11] MEDS: MIDAZOLAM DRIP 50 mg/50mL 50 ML IV SCH (11:05)
[2022-11-11] MEDS ORDERED: LORazepam 2MG/ML-1ML VIAL IV PRN (14:15)
[2022-11-11] MEDS ORDERED: MORPHINE SULFATE INJ 2 MG/ml SYRG IV PRN ×2 (14:15→14:30)
[2022-11-11] MEDS: NOREPINEPHRINE 8 MG/250ML KIT 250 ML IV SCH (19:00)
[2022-11-11] MEDS ORDERED: EPOETIN ALFA-EPBX 10,000 UNIT/1ML VIAL SC ONE (21:00)
[2022-11-11] MEDS: ATORVASTATIN 20 MG TAB PO SCH (21:00)
[2022-11-12] VITALS (24 sets, daily range): BP systolic 79–134; BP diastolic 20–64
[2022-11-12] MEDS: fentaNYL Drip 2500mCg/250mlNS 250 ML IV SCH (02:45)
[2022-11-12] MEDS: LACTULOSE 20Gm/30ML SOLN PO SCH ×3 (06:00→22:00)
[2022-11-12] MEDS: BUMETANIDE 2.5mg/10ml (0.25 mg/ml) INJ IV SCH ×2 (06:00→17:56)
[2022-11-12] MEDS: ACCU-CHEK COMFORT CURVE STRIP VI SCH ×4 (06:00→17:56)
[2022-11-12] MEDS: InsuLIN REG 1unit/0.01ml Soln (100units/ml) SC SCH ×4 (06:00→17:56)
[2022-11-12] MEDS: SODIUM CHLOR 0.9% PF (SALINE LOCK) 10ML VIAL/SYR IV SCH ×3 (06:00→22:00)
[2022-11-12] MEDS: METOCLOPRAMIDE 10 mg/10ml ORAL soln GT SCH ×3 (06:00→22:00)
[2022-11-12] MEDS: HEPARIN SODIUM (PORCINE) 5000 UNITS/ML 1ML VIAL SC SCH ×3 (06:00→22:00)
[2022-11-12] MEDS: LEVOTHYROXINE SODIUM 100 MCG TAB PO SCH (07:00)
[2022-11-12] MEDS: PANTOPRAZOLE 40 MG/10 ML VIAL INJ IV SCH (10:00)
[2022-11-12] MEDS: RANOLAZINE ER 500 MG TAB PO SCH ×2 (10:00→22:00)
[2022-11-12] MEDS: METOPROLOL TARTRATE 25 MG TAB PO SCH ×2 (10:00→22:00)
[2022-11-12] MEDS: VALPROATE INJ 500 MG in SODIUM CHL 0.9% 100 ML IV SCH ×2 (10:00→22:00)
[2022-11-12] MEDS: ATORVASTATIN 20 MG TAB PO SCH (21:00)
[2022-11-13] VITALS (16 sets, daily range): BP systolic 83–118; BP diastolic 18–29
[2022-11-13] MEDS: BUMETANIDE 2.5mg/10ml (0.25 mg/ml) INJ IV SCH (06:00)
[2022-11-13] MEDS: HEPARIN SODIUM (PORCINE) 5000 UNITS/ML 1ML VIAL SC SCH ×2 (06:00→14:00)
[2022-11-13] MEDS: SODIUM CHLOR 0.9% PF (SALINE LOCK) 10ML VIAL/SYR IV SCH ×2 (06:00→14:00)
[2022-11-13] MEDS: LACTULOSE 20Gm/30ML SOLN PO SCH ×2 (06:00→14:00)
[2022-11-13] MEDS: METOCLOPRAMIDE 10 mg/10ml ORAL soln GT SCH ×2 (06:00→14:00)
[2022-11-13] MEDS: ACCU-CHEK COMFORT CURVE STRIP VI SCH ×3 (06:00→12:00)
[2022-11-13] MEDS: InsuLIN REG 1unit/0.01ml Soln (100units/ml) SC SCH ×3 (06:00→12:00)
[2022-11-13] MEDS: LEVOTHYROXINE SODIUM 100 MCG TAB PO SCH (06:50)
[2022-11-13] MEDS: RANOLAZINE ER 500 MG TAB PO SCH (10:00)
[2022-11-13] MEDS: PANTOPRAZOLE 40 MG/10 ML VIAL INJ IV SCH (10:00)
[2022-11-13] MEDS: METOPROLOL TARTRATE 25 MG TAB PO SCH (10:00)
[2022-11-13] MEDS: VALPROATE INJ 500 MG in SODIUM CHL 0.9% 100 ML IV SCH (10:00)
== END 2022-11-13 16:58 | disposition hospice, home (50) | DRG 207 ==
LOC: ER 16:36 → TELE 20:45 → TELE-WESTW 10-19 16:39 → ICU CENTRL 10-23 20:00 → DOU IN ICU 10-23 20:35 → ICU CENTRL 11-01 04:39
PROVIDERS: ADMIT Nurse Practitioner Family; ATTEND Internal Medicine
PROC: 5A1D70Z Performance of Urinary Filtration, Intermittent, Less than 6 Hours Per Day (ICD-10-PCS; principal; 2022-10-20)
PROC: 5A1D70Z Performance of Urinary Filtration, Intermittent, Less than 6 Hours Per Day (ICD-10-PCS; 2022-10-21)
PROC: 5A09457 Assistance with Respiratory Ventilation, 24-96 Consecutive Hours, Continuous Positive Airway Pressure (ICD-10-PCS; 2022-10-23)
PROC: 5A1D70Z Performance of Urinary Filtration, Intermittent, Less than 6 Hours Per Day (ICD-10-PCS; 2022-10-24)
PROC: 05HF33Z Insertion of Infusion Device into Left Cephalic Vein, Percutaneous Approach (ICD-10-PCS; 2022-10-25)
PROC: B54NZZA Ultrasonography of Left Upper Extremity Veins, Guidance (ICD-10-PCS; 2022-10-25)
PROC: 5A1D70Z Performance of Urinary Filtration, Intermittent, Less than 6 Hours Per Day (ICD-10-PCS; 2022-10-26)
PROC: 5A1D70Z Performance of Urinary Filtration, Intermittent, Less than 6 Hours Per Day (ICD-10-PCS; 2022-10-27)
PROC: 0BH17EZ Insertion of Endotracheal Airway into Trachea, Via Natural or Artificial Opening (ICD-10-PCS; 2022-10-31)
PROC: 5A1955Z Respiratory Ventilation, Greater than 96 Consecutive Hours (ICD-10-PCS; 2022-10-31)
PROC: 5A1D70Z Performance of Urinary Filtration, Intermittent, Less than 6 Hours Per Day (ICD-10-PCS; 2022-10-31)
PROC: 02HV33Z Insertion of Infusion Device into Superior Vena Cava, Percutaneous Approach (ICD-10-PCS; 2022-10-31)
PROC: 5A1D70Z Performance of Urinary Filtration, Intermittent, Less than 6 Hours Per Day (ICD-10-PCS; 2022-11-01)
PROC: 0B978ZZ Drainage of Left Main Bronchus, Via Natural or Artificial Opening Endoscopic (ICD-10-PCS; 2022-11-01)
PROC: 5A1D70Z Performance of Urinary Filtration, Intermittent, Less than 6 Hours Per Day (ICD-10-PCS; 2022-11-05)
PROC: 4A00X4Z Measurement of Central Nervous Electrical Activity, External Approach (ICD-10-PCS; 2022-11-06)
PROC: 5A1D70Z Performance of Urinary Filtration, Intermittent, Less than 6 Hours Per Day (ICD-10-PCS; 2022-11-08)
DX: J96.21 Acute and chronic respiratory failure with hypoxia (principal); J18.9 Pneumonia, unspecified organism; I50.33 Acute on chronic diastolic (congestive) heart failure; N18.6 End stage renal disease; G93.41 Metabolic encephalopathy; I13.2 Hypertensive heart and chronic kidney disease with heart failure and with stage 5 chronic kidney disease, or end stage renal disease; E87.1 Hypo-osmolality and hyponatremia; J98.11 Atelectasis; G93.1 Anoxic brain damage, not elsewhere classified; Z99.11 Dependence on respirator [ventilator] status; I48.91 Unspecified atrial fibrillation; I27.20 Pulmonary hypertension, unspecified; F41.9 Anxiety disorder, unspecified; E11.22 Type 2 diabetes mellitus with diabetic chronic kidney disease; Z20.822 Contact with and (suspected) exposure to COVID-19; E78.5 Hyperlipidemia, unspecified; Z96.653 Presence of artificial knee joint, bilateral; D72.829 Elevated white blood cell count, unspecified; E87.5 Hyperkalemia; J06.9 Acute upper respiratory infection, unspecified; D63.1 Anemia in chronic kidney disease; Z66 Do not resuscitate; E03.9 Hypothyroidism, unspecified; F17.200 Nicotine dependence, unspecified, uncomplicated; J43.9 Emphysema, unspecified; G40.409 Other generalized epilepsy and epileptic syndromes, not intractable, without status epilepticus; Z99.2 Dependence on renal dialysis; Z90.710 Acquired absence of both cervix and uterus; Z80.0 Family history of malignant neoplasm of digestive organs; Z79.899 Other long term (current) drug therapy; Z79.01 Long term (current) use of anticoagulants; Z83.3 Family history of diabetes mellitus; Z82.49 Family history of ischemic heart disease and other diseases of the circulatory system; Z99.81 Dependence on supplemental oxygen
CPT/HCPCS: 31622; 36415; 36569; 36600; 70450; 71045; 71250; 76705; 80048; 80053; 80202; 82140; 82270; 82306; 82805; 82962; 83735; 83880; 83970; 84100; 84484; 85007; 85014; 85018; 85025; 85027; 85049; 85610; 85730; 87040; 87070; 87077; 87081; 87086; 87205; 87426; 90935; 93005; 93306; 93971; 94002; 94003; 94640; 94660; 94667; 95819; 96374; 97110; 97116; 97163; 97530; 99291; C9113; G0378; J0171; J0330; J0696; J1450; J1642; J1815; J1956; J2185; J2250; J7060; P9047